=== PATIENT | male | born 1950 | race Caucasian/White ===

== ENCOUNTER 2023-02-11 12:33 | Emergency (ER) | payer MEDICARE, OTHER, SELFPAY ==
[2023-02-11 12:59] VITALS: BP 151/70; PULSE 72; RESP 18; TEMP 36.7; O2SAT 99; BMI 22.9
--- NOTE | 2023-02-11 13:05 | DI.US.S_ITS ---
PROCEDURE: US PERIPH VENOUS LOW EXTREM LT INDICATIONS: PAIN AND SWELLING TECHNIQUE: Real-time imaging, as well as color and pulse Doppler interrogation, were performed of the lower extremity deep veins from the inguinal ligament to the popliteal fossa. COMPARISON: None. FINDINGS: The common femoral, femoral and popliteal veins are normally compressible, and free of intraluminal thrombus. Color and pulse Doppler demonstrate normal phasic intraluminal flow. There is normal augmentation response to distal compression maneuver. 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 IMPRESSION: No DVT found. 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 Dictated by: Anam Christine M.D. on 02/11/2023 at 14:13 Approved by: Anam Christine M.D. on 02/11/2023 at 14:14
--- NOTE | 2023-02-11 14:45 | DI.RAD.S_ITS ---
PROCEDURE: XR KNEE LT 3V INDICATIONS: Effusion, meniscal injury or DJD? TECHNIQUE: 3 views of the knee were acquired. COMPARISON: None. FINDINGS: Bones: No fractures or dislocations. No suspicious bony lesions. Tricompartmental joint space narrowing with associated osteophytosis. Chondrocalcinosis. Soft tissues: Moderate joint effusion. No suspicious soft tissue calcifications. IMPRESSION: Moderate knee joint effusion, without displaced fracture. [id number] tricompartmental osteoarthritis. Kellgren-Ole Grade 2. Chondrocalcinosis, which can be seen in the setting of CPPD, aging, and parathyroid disorders. Dictated by: Rush Walker M.D. on 02/11/2023 at 15:17 Approved by: Rush Walker M.D. on 02/11/2023 at 15:18
--- NOTE | 2023-02-11 14:47 | ED_ITS ---
HPI - Extremity Problem <SHINE Angel - Last Filed: 02/11/23 15:51> General Chief complaint: Extremity Problem,Nontraumatic Stated complaint: Redness/swelling/flakey skin/pain L leg (Clot?) Time Seen by Provider: 02/11/23 14:45 Source: patient Mode of arrival: Ambulatory History of Present Illness HPI Narrative: This is a 72-year-old gentleman who is active, reports he is hike several 100 miles a year, presents to the emergency department complaining of left knee swelling which has gotten extremely swollen and now he has instability and difficulty walking on it. He states that he started having left knee pain in November, it has progressed so much she is unable to hike now. He denies any trauma, states that he took some Aleve last night and it was helpful. Denies numbness or tingling, reports that he was sent here for evaluation by his primary care provider to rule out DVT. He states that he feels it up to his medial thigh. But states that his lower leg was what was swollen yesterday. He denies history of blood clots, is not anticoagulated Related Data Previous Rx's Medication Instructions Recorded diclofenac sodium 1 % topical gel 4 g topical QID #100 grams 02/11/23 hydrocodone 5 mg-acetaminophen 325 1 tab PO Q6H PRN pain #10 tabs 02/11/23 mg tablet prednisone 20 mg tablet 40 mg PO DAILY 5 days #10 tabs 02/11/23 Allergies Allergy/AdvReac Type Severity Reaction Status Date / Time No Known Drug Allergies Allergy Verified 02/11/23 12:59 Review of Systems <SHINE Angel - Last Filed: 02/11/23 15:51> Review of Systems ROS Unobtainable: All systems reviewed & are unremarkable except as noted in HPI and below Patient History <SHINE Angel - Last Filed: 02/11/23 15:51> Social History Smoking Status: Former smoker Smoking Status: Former smoker alcohol intake frequency: 0-2 drinks per day Alcohol type: beer Substance Use Type: marijuana Exam <SHINE Angel - Last Filed: 02/11/23 15:51> Narrative Exam Narrative: Reviewed vitals signs and nursing notes. General: Pleasant, sitting upright, in no acute distress, well groomed, afebrile MSK: Left knee is grossly edematous, palpable suprapatellar fusion with fluid wave, nontender over LCL, MCL, patellar tendon, small palpable Castro cyst to posterior knee, nontender, no discoloration, warmth or rash. Skin: brisk capillary refill, without rash or wound Neuro: clear speech and normal cognition, A&O x3, GCS 15, no focal motor or sensation deficits Initial Vital Signs Initial Vital Signs: Vital Signs Temperature 98.0 F 02/11/23 12:59 Pulse Rate 72 02/11/23 12:59 Respiratory Rate 18 02/11/23 12:59 Blood Pressure 151/70 H 02/11/23 12:59 Pulse Oximetry 99 02/11/23 12:59 Oxygen Delivery Method Room Air 02/11/23 12:59 <Alix Howard DO - Last Filed: 02/11/23 19:48> Initial Vital Signs Initial Vital Signs: Vital Signs Temperature 98.0 F 02/11/23 12:59 Pulse Rate 72 02/11/23 12:59 Respiratory Rate 18 02/11/23 12:59 Blood Pressure 151/70 H 02/11/23 12:59 Pulse Oximetry 99 02/11/23 12:59 Oxygen Delivery Method Room Air 02/11/23 12:59 Procedures <SHINE Angel - Last Filed: 02/11/23 15:51> Orthopedic Splinting/Casting Injury #1: Side: left Lower Extremity Injury Location: knee Lower Extremity Immobilizer: knee immobilizer Post splinting neuro exam: intact Post splinting vascular exam: intact Placed by: Provider Course <SHINE Angel - Last Filed: 02/11/23 15:51> Orders Ordered: ED Orders 02/11/23 13:05 US periph venous low extrem lt Stat 02/11/23 14:45 XR knee LT 3V Stat Discontinued Medications Naproxen (Naproxen 250 Mg Tablet) 250 mg PO NOW ONE Stop: 02/11/23 15:32 Last Admin: 02/11/23 15:37 Dose: 250 mg Documented By: LATESHA Prednisone (Prednisone 20 Mg Tablet) 40 mg PO NOW ONE Stop: 02/11/23 15:32 Last Admin: 02/11/23 15:37 Dose: 40 mg Documented By: RLS Vital Signs Vital signs: Vital Signs - 8 hr 02/11/23 12:59 02/11/23 15:57 Temperature 98.0 F Pulse Rate 72 68 Respiratory Rate 18 17 Blood Pressure 151/70 H 148/62 H Pulse Oximetry 99 98 Oxygen Delivery Method Room Air Room Air <Alix Howard DO - Last Filed: 02/11/23 19:48> Orders Ordered: ED Orders 02/11/23 13:05 US periph venous low extrem lt Stat 02/11/23 14:45 XR knee LT 3V Stat Discontinued Medications Naproxen (Naproxen 250 Mg Tablet) 250 mg PO NOW ONE Stop: 02/11/23 15:32 Last Admin: 02/11/23 15:37 Dose: 250 mg Documented By: LATESHA Prednisone (Prednisone 20 Mg Tablet) 40 mg PO NOW ONE Stop: 02/11/23 15:32 Last Admin: 02/11/23 15:37 Dose: 40 mg Documented By: RLS Vital Signs Vital signs: Vital Signs - 8 hr 02/11/23 12:59 02/11/23 15:57 Temperature 98.0 F Pulse Rate 72 68 Respiratory Rate 18 17 Blood Pressure 151/70 H 148/62 H Pulse Oximetry 99 98 Oxygen Delivery Method Room Air Room Air MDM - Extremity (Nontraumatic) <SHINE Angel - Last Filed: 02/11/23 15:51> Imaging Data US - DVT: Radiologist's Impression: [place] [address] Ultrasound Report Signed Patient: Reece Cardona MR#: [id number] : 1950 Acct:[id number] Age/Sex: 72 / M Date of Service: 02/11/23 Loc: ED Accession Number: [id number] ?? Procedure: US periph venous low extrem lt Ordering Provider: Alix Howard D.O. PROCEDURE:? US PERIPH VENOUS LOW EXTREM LT ? INDICATIONS:? PAIN AND SWELLING ? TECHNIQUE:? Real-time imaging, as well as color and pulse Doppler interrogation, were performed of the lower extremity deep veins from the inguinal ligament to the popliteal fossa.? ? COMPARISON:? None. ? FINDINGS:? The common femoral, femoral and popliteal veins are normally compressible, and free of intraluminal thrombus.? Color and pulse Doppler demonstrate normal phasic intraluminal flow.? There is normal augmentation response to distal compression maneuver. ?Note is made of a Castro cyst at the posterior left knee measuring 1.5 x 4.6 x 4.8 cm.? ? IMPRESSION:? No DVT found.? 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 ? ? Dictated by: Anam Christine M.D. on 02/11/2023 at 14:13 ? ? Approved by: Anam Christine M.D. on 02/11/2023 at 14:14 ? Extremity x-ray #2: Radiologist's Impression: [address] [address] XRay Report Signed Patient: Reece Cardona MR#: [id number] : 1950 Acct:[id number] Age/Sex: 72 / M Date of Service: 02/11/23 Loc: ED Accession Number: [id number] ?? Procedure: XR knee LT 3V Ordering Provider: Taina Roldan PROCEDURE:? XR KNEE LT 3V ? INDICATIONS:? Effusion, meniscal injury or DJD? ? TECHNIQUE:? 3 views of the knee were acquired.? ? COMPARISON:? None. ? FINDINGS:? ? Bones:? No fractures or dislocations.? No suspicious bony lesions.? Tricompartmental joint space narrowing with associated osteophytosis.? Chondrocalcinosis. ? ? Soft tissues:? Moderate joint effusion.? No suspicious soft tissue calcifications.? ? ? IMPRESSION:? Moderate knee joint effusion, without displaced fracture. ? Gopi-ig-qhboodua tricompartmental osteoarthritis. Kellgren-Ole Grade 2. ? Chondrocalcinosis, which can be seen in the setting of CPPD, aging, and parathyroid disorders. ? ? Dictated by: Rush Walker M.D. on 02/11/2023 at 15:17 ? ? Approved by: Rush Walker M.D. on 02/11/2023 at 15:18 ? MDM Narrative Medical decision making narrative: Chief Complaint: Worsening left knee pain over the last few months Multiple etiologies for patient's complaint considered including, but not limited to: Degenerative joint disease, meniscal injury, effusion, DVT, Castro cyst, osteoarthritis flare, osteochondral injury, ligamental injury I have independently reviewed the patient's vital signs and nursing notes as w ell as prior records if available. Plan: Patient had an ultrasound DVT of his left lower extremity which was negative for DVT. When he came back to room, after assessment of appears that he has a left knee effusion and concern for bony abnormality of the left knee. He does not have a history of gout. Denies history of this in the past but states that he is had worsening his left knee without improvement over the last few months. Course of Care: Left knee x-ray is positive for moderate effusion, moderate tricompartmental osteoarthritis without fracture. I wrapped his knee and 4 in Laith bandage, patient reports improved stability sensation afterwards. He is ambulatory however limping on his left leg due to pain in his knee. Patient states that the naproxen was helpful last night. I encouraged him to continue using naproxen, gave him prednisone 40 mg daily for the next 5 days, hydrocodone to use as needed for pain, topical diclofenac gel, he understands that you with his medications prevent stomach ulcer. He will follow-up with orthopedics Social considerations that may affect disposition: none Questions are addressed and there is agreement with the plan and for follow-up. I consulted with the ED attending physician Dr. Howard as needed for higher level of care considerations and they were available for discussion and recommendations regarding plan of care and diagnostic testing. Patient is appropriate for outpatient management. Discharge Plan Departure Patient Disposition: Home Clinical Impression: Effusion of knee joint, left, Chondrocalcinosis Castro cyst Qualifiers: Laterality: left Qualified Code(s): M71.22 - Synovial cyst of popliteal space [Castro], left knee Instructions: Osteoarthritis, DI for Knee Effusion Activity Restrictions/Additional Instructions: *You have been diagnosed with left knee tricompartmental osteoarthritis. Chondrocalcinosis, and a moderate knee effusion without fracture. Please schedule follow-up at [facility] for evaluation your left knee. The ultrasound is negative for DVT, there is a small Castro cyst to the back of the knee which is benign. The steroids should help with the swelling, please use an Laith bandage to help with stability of your left knee, ice it frequently for 20 minutes on an at least 20 minutes off 3 to 4 times a day. Please eat food with your medications to prevent stomach ulcer. Thank you for your patients today, it was a pleasure to meet you, I hope this heals well. I have given you some Vicodin for pain keeping you up at night or severe pain as needed. *What to do: *Please continue to take your regular medications as directed. [ x] New medication prescriptions sent to your pharmacy: [[facility] ] [ ] New medication written as a paper prescription [ ] No new medications given *Please call and schedule follow up with your primary care provider in 2-3 days, at least for an update. Let them know you were seen in the Emergency Department for the above problem. We will electronically transmit a record of today's note if your PCP or specialist is in our system. *If you do not have a primary care provider please contact [phone] to establish care with one of the [facility] primary care providers. *Return to the Emergency Department for worsening symptoms, inability to keep liquids down, fever greater than 101F, chills, or other concerning symptom. Prescriptions: New prednisone 20 mg tablet 40 mg PO DAILY 5 Days Qty: 10 0RF diclofenac sodium 1 % gel 4 g topical QID Qty: 100 2RF Rx Instructions: Apply to knee up to 4 times a day as needed hydrocodone-acetaminophen 5-325 mg tablet 1 tab PO Q6H PRN (Reason: pain) Qty: 10 0RF Referrals: [facility] [Provider Group] Nisa Cobb PA-C [Primary Care Provider] - Stand Alone Forms: Patient Portal/API <Alix Howard DO - Last Filed: 02/11/23 19:48> Cosign ED Attending Yumiko Attestation: I was immediately available in the department for consultation. Documentation has been reviewed. Case was not discussed.
[2023-02-11] MEDS: NAPROXEN 250 MG TABLET PO (15:37)
[2023-02-11] MEDS: predniSONE 20 MG TABLET 40 MG PO (15:37)
[2023-02-11 15:57] VITALS: BP 148/62; PULSE 68; RESP 17; O2SAT 98
== END 2023-02-11 15:58 | disposition home or self-care (01) ==
PROVIDERS: Emergency Provider Nurse Practitioner Critical Care Medicine; Family Provider Student in an Organized Health Care Education/Training Program; PCP Student in an Organized Health Care Education/Training Program
DX: M71.22 Synovial cyst of popliteal space [Baker], left knee (principal); M11.20 Other chondrocalcinosis, unspecified site; M25.462 Effusion, left knee
CPT/HCPCS: 73562; 93971; 99283

== ENCOUNTER 2023-04-27 10:15 | Outpatient (RCR) | payer MEDICARE, OTHER, SELFPAY ==
--- NOTE | 2023-02-07 17:55 | PT.OIE ---
Current Diagnoses Other bursitis of hip, left hip (02/07/23) Pain in left leg (02/07/23) Weakness (02/07/23) Visit Care Team Role Provider Type Nisa Cobb PA-C Family Provider Physician Household Appliance Repairer Primary Care Provider Specialty: Medical Address: [address] [place] [address], [id number] Email: [email or web address] SHINE Brian Attending Provider Advanced Insulation Estimator Referring Provider Specialty: Family Practice Address: [facility] [facility], [address], [place], [address] Phone: Fax: Email: [email or web address] Physical Therapy Initial Evaluation PT-OP-A Visit Information Start: 02/07/23 17:28 Freq: Status: Active Protocol: Document 02/07/23 14:45 DCW (Rec: 02/07/23 17:40 DCW [id number]) Out-Patient Physical Therapy Visit Information Visit Information Visit Type Initial Evaluation Visit Start Time 14:45 Visit Stop Time 15:30 Total Visit Minutes 45 Visit Number 1 Number of TOY PACKER Visits 0 Evaluation Information Evaluation Date 02/07/23 PT-OP-B Current Condition Start: 02/07/23 17:28 Freq: Status: Active Protocol: Document 02/07/23 14:45 DCW (Rec: 02/07/23 17:40 DCW [id number]) Current Condition History of Current Condition Onset Date ~9 month history Current Complaints left hip pain limiting usual outdoor activities History of Current Condition Pt is a very active 72 year old male presenting with a nine month history of left hip pain. Pt reports he typically hikes [place] 3-4 times a week, but since last May, has been experiencing left lateral hip pain that worses when he hikes. Finally got so bad in November that he stopped hiking, feels like it has improved some since then, but still bothers him intermittently, resulting in frequent limping. Reports he established care with a new PCP last week, and she thinks it is bursitis. Pt notes that when she was poking around on his lateral hip, he remembered that he slipped on ice and fell directly on his lateral hip last July, right where he is having his pain, but does admit that the pain had been bothering him prior to the fall. Increased stiffness and difficulty moving his leg in the morning, has tried icing it but afterward could hardly walk. Treatment Goals Patient/Caregiver Goals Return to hiking 3-4x/week PT-OP-C Subjective Start: 02/07/23 17:28 Freq: Status: Active Protocol: Document 02/07/23 14:45 DCW (Rec: 02/07/23 17:40 DCW [id number]) OP-PT Subjective Patient Comments Patient Comments I'd be really thankful if I could get back to hiking. Patient Reported Progress Same Patient Questionnaires Lower Extremity Functional Scale LEFS Score 51.25 LEFS Impairment 40 to 59% Impaired (Score 32- 47) OP-PT Pain Assessment Location Left Lateral Hip Intensity 8 Scale Used Numeric (0 - 10) Frequency Intermittent Variations/Patterns Pain ranges from 4/10-8/10 PT-OP-F Manual Assessment Start: 02/07/23 17:28 Freq: Status: Active Protocol: Document 02/07/23 14:45 DCW (Rec: 02/07/23 17:45 DCW [id number]) Manual Assessments Soft Tissue Assessment Soft Tissue Mobility Assessment Point-specific pain inferior to greater trochanter, mild tightness along left ITB. Otherwise pt soft tissue very flexible PT-OP-G Mobility & Gait Start: 02/07/23 17:28 Freq: Status: Active Protocol: Document 02/07/23 14:45 DCW (Rec: 02/07/23 17:45 DCW [id number]) OP Gait Assessment Gait Gait Assistance Required: Independent Assistive Devices Assistive Device None Gait Deviations General Gait Pattern Antalgic,Decreased Stride Length,Lateral Trunk Lean Comments Gait Comments Pt ambulates with moderate left antalgic gait pattern and decreased right step length in effort to unweight left foot more quickly. PT-OP-L Special Tests Start: 02/07/23 17:28 Freq: Status: Active Protocol: Document 02/07/23 14:45 DCW (Rec: 02/07/23 17:45 DCW [id number]) Special Tests Hip Special Tests Hip Distraction Test Results Vague feeling of improved pain Samantha's Test Test Results Negative Reece Test Results Negative Straight Leg Raise Test Results Negative Scour Test Test Results Negative Piriformis Test Results Negative YANELIS Test Results Negative PT-OP-M Strength Start: 02/07/23 17:28 Freq: Status: Active Protocol: Document 02/07/23 14:45 DCW (Rec: 02/07/23 17:45 DCW [id number]) Hip Strength Hip Manual Muscle Testing Right Flexion (L2) 4+ Good+ Abduction 4+ Good+ Adduction 4+ Good+ External Rotation 4+ Good+ Internal Rotation 4+ Good+ Left Flexion (L2) 4- Good- Abduction 4- Good- Adduction 4+ Good+ External Rotation 4+ Good+ Internal Rotation 4+ Good+ Knee Strength Knee Manual Muscle Testing Right Flexion (S2) 4+ Good+ Extension (L3) 4+ Good+ Left Flexion (S2) 4+ Good+ Extension (L3) 4+ Good+ PT-OP-Q Treatments Start: 02/07/23 17:40 Freq: Status: Active Protocol: Document 02/07/23 14:45 DCW (Rec: 02/07/23 17:45 DCW [id number]) Therapeutic Exercises Standing Exercises Hip Extension Standing Exercise Name Hip Extension Side bilateral Resistance Lv 3 T-band Hip Abduction Standing Exercise Name Hip Abduction Side bilateral Resistance Lv 3 T-band PT-OP-T Assessment and Plan Start: 02/07/23 17:28 Freq: Status: Active Protocol: Document 02/07/23 14:45 DCW (Rec: 02/07/23 17:54 DCW [id number]) Physical Therapy Assessment Rehab Potential Rehabilitation Potential Excellent Evaluation Complexity Number of Personal Factors/Comorbidities 1-2 Number of Body Systems Impaired 1-2 Clinical Presentation at Evaluation Stable Impairments Impairments Activity Tolerance,Functional Activities,Functional Mobility ,Gait,Pain,ROM,Soft Tissue Mobility,Strength Goals Three Impairment Left hip weakness Skilled Nursing Goal (LTG) Pt to demonstrate MMT testing of left hip flexion and abduction to improve to at least 4+/5 in order to improve pt ability to ambulate without an antalgic gait pattern. LTG Duration 04/10/23 Two Impairment Pt unable to participate in his hobby of hiking due to hip pain Skilled Nursing Goal (LTG) Pt to demonstrate ability to hike [place] at least 1x/ week without increased hip pain in order to return to preferred outdoor exercise activities. LTG Duration 04/10/23 One Impairment Pt does not have an appropriate home exercise program Short Term Goal (STG) Pt to be independent and compliant with an appropriate HEP STG Duration 8/10/23 Assessment Summary Assessment Pt presents with signs and symptoms consistent with likely left GT bursitis. Pt experiences very point specific pain, and no other testing today able to replicate any positive symptoms. Pt does show some left hip weakness, especially hip flexion and abduction. Pt ambulates with moderate antalgia, and is limited in his participation in his usual outdoor activities, including regular hiking of [place]. Pt should benefit from skilled therapy focusing on STM, strengthening, as well as potential use of Iontophoresis to assist with anti-inflammatory process. Physical Therapy Plan Frequency and Duration Frequency of Treatment 2x/Week Plan of Care Start Date 02/07/23 Plan of Care End Date 04/10/23 Therapeutic Interventions Therapeutic Interventions Gait Training,Home Exercise Program,Joint Mobilizations, Manual Therapy,Neuromuscular Re-education,Patient/Caregiver Education,Self-Care/Home Management,Soft Tissue Mobilization,Therapeutic Activities,Therapeutic Exercises Modalities Cold Pack/Ice Massage,Electric Stimulation,Hot Packs, Iontophoresis,Ultrasound Other Therapeutic Interventions Iontophoresis /c Dexamethasone , 10 mg/mL Next Visit Focus/Plan Next Note Type Treatment Note Next Visit Plan STM, hip strengthening, Ionto
--- NOTE | 2023-02-07 17:55 | PT.OPPOC ---
Physical, Occupational & Speech Therapy At [facility] Current Diagnoses Other bursitis of hip, left hip (02/07/23) Pain in left leg (02/07/23) Weakness (02/07/23) Visit Care Team Role Provider Type Nisa Cobb PA-C Family Provider Physician Rn Staff Primary Care Provider Specialty: Medical Address: [address] [place] [address], [id number] Email: [email or web address] SHINE Brian Attending Provider Advanced Chair Mechanic Referring Provider Specialty: Family Practice Address: [facility] [facility], [facility] [address], [place], [address] Phone: Fax: Email: [email or web address] Plan Of Care PT-OP-T Assessment and Plan Start: 02/07/23 17:28 Freq: Status: Active Protocol: Document 02/07/23 14:45 DCW (Rec: 02/07/23 17:54 DCW [id number]) Physical Therapy Assessment Rehab Potential Rehabilitation Potential Excellent Evaluation Complexity Number of Personal Factors/Comorbidities 1-2 Number of Body Systems Impaired 1-2 Clinical Presentation at Evaluation Stable Impairments Impairments Activity Tolerance,Functional Activities,Functional Mobility ,Gait,Pain,ROM,Soft Tissue Mobility,Strength Goals Three Impairment Left hip weakness Long-Term Goal (LTG) Pt to demonstrate MMT testing of left hip flexion and abduction to improve to at least 4+/5 in order to improve pt ability to ambulate without an antalgic gait pattern. LTG Duration 04/10/23 Two Impairment Pt unable to participate in his hobby of hiking due to hip pain Airborne And Air Delivery Specialist Goal (LTG) Pt to demonstrate ability to hike [place] at least 1x/ week without increased hip pain in order to return to preferred outdoor exercise activities. LTG Duration 04/10/23 One Impairment Pt does not have an appropriate home exercise program Short Term Goal (STG) Pt to be independent and compliant with an appropriate HEP STG Duration 03/10/23 Assessment Summary Assessment Pt presents with signs and symptoms consistent with likely left GT bursitis. Pt experiences very point specific pain, and no other testing today able to replicate any positive symptoms. Pt does show some left hip weakness, especially hip flexion and abduction. Pt ambulates with moderate antalgia, and is limited in his participation in his usual outdoor activities, including regular hiking of [place]. Pt should benefit from skilled therapy focusing on STM, strengthening, as well as potential use of Iontophoresis to assist with anti-inflammatory process. Physical Therapy Plan Frequency and Duration Frequency of Treatment 2x/Week Plan of Care Start Date 02/07/23 Plan of Care End Date 04/10/23 Therapeutic Interventions Therapeutic Interventions Gait Training,Home Exercise Program,Joint Mobilizations, Manual Therapy,Neuromuscular Re-education,Patient/Caregiver Education,Self-Care/Home Management,Soft Tissue Mobilization,Therapeutic Activities,Therapeutic Exercises Modalities Cold Pack/Ice Massage,Electric Stimulation,Hot Packs, Iontophoresis,Ultrasound Other Therapeutic Interventions Iontophoresis /c Dexamethasone , 10 mg/mL Next Visit Focus/Plan Next Note Type Treatment Note Next Visit Plan STM, hip strengthening, Ionto Plan of Care Dates Plan of Care Start Date 02/07/23 Plan of Care End Date 04/10/23 Electronically Signed by: Carlos Grant, PT 02/07/23 [id number] If you are in agreement with this Plan of Care, please return a signed and dated copy. I have reviewed this Plan of Care and certify that the skilled therapy services above are required to meet the patient?s needs. Physician Signature Date Printed Name and Credentials Clinical Instructor Signature Printed Name and Credentials
--- NOTE | 2023-02-11 12:44 | PT-OP ANOTE ---
Pt arrived for his 02/11/23 with severe antalgia, reports his left leg pain started increasing on Tuesday, and has been worsening ever since. L LE was noted to be swollen and tender with red, flaky skin. Therapist decided to cancel appointment and escorted patient to the ED for assessment of potential DVT.
--- NOTE | 2023-02-14 13:22 | PT-OP ANOTE ---
Spoke with pt by phone regarding ongoing PT following trip to ED last week. Therapist and patient agreeable to wait and see what Ortho has to say following appointment on 02/18/23, will plan to continue PT after this appointment if cleared by Ortho.
--- NOTE | 2023-03-01 15:40 | PT.OTN ---
Current Diagnoses Other bursitis of hip, left hip (03/01/23) Pain in left leg (03/01/23) Weakness (03/01/23) Physical Therapy Treatment Note PT-OP-A Visit Information Start: 02/07/23 17:28 Freq: Status: Active Protocol: Document 03/01/23 14:17 NBM (Rec: 03/01/23 15:39 NBM [id number]) Out-Patient Physical Therapy Visit Information Visit Information Visit Type Treatment Note Visit Start Time 14:16 Visit Stop Time 15:00 Total Visit Minutes 45 Visit Number 2 Number of [facility] Visits 1 PT-OP-B Current Condition Start: 02/07/23 17:28 Freq: Status: Active Protocol: Document 02/07/23 14:45 DCW (Rec: 02/07/23 17:40 DCW [id number]) Current Condition History of Current Condition Onset Date ~9 month history Current Complaints left hip pain limiting usual outdoor activities History of Current Condition Pt is a very active 72 year old male presenting with a nine month history of left hip pain. Pt reports he typically hikes [place] 3-4 times a week, but since last May, has been experiencing left lateral hip pain that worses when he hikes. Finally got so bad in November that he stopped hiking, feels like it has improved some since then, but still bothers him intermittently, resulting in frequent limping. Reports he established care with a new PCP last week, and she thinks it is bursitis. Pt notes that when she was poking around on his lateral hip, he remembered that he slipped on ice and fell directly on his lateral hip last July, right where he is having his pain, but does admit that the pain had been bothering him prior to the fall. Increased stiffness and difficulty moving his leg in the morning, has tried icing it but afterward could hardly walk. Treatment Goals Patient/Caregiver Goals Return to hiking 3-4x/week PT-OP-C Subjective Start: 02/07/23 17:28 Freq: Status: Active Protocol: Document 03/01/23 14:17 NBM (Rec: 03/01/23 15:39 NBM [id number]) OP-PT Subjective Patient Comments Patient Comments Rich reports he saw ortho for his swollen L knee and was advised both knees have arthritis and he can proceed with PT for his hip. He hasn't been able to hike since November because he kept trying to hike through his L hip pain 8 months ago and it kept getting inflamed. He hasn't done any of his hip exercises and feels like we're starting over. It does seem to be better but I' ve had so many false starts where there seems to be an improvement and then it's back . He had L hip and leg pain for several days but none for the last 8 days, possibly because his knee forced him to rest more. He did yoga daily for 40 years but stopped because of the hip and leg pain. Pt sleeps on back or R hip. PT-OP-F Manual Assessment Start: 02/07/23 17:28 Freq: Status: Active Protocol: Document 02/07/23 14:45 DCW (Rec: 02/07/23 17:45 DCW [id number]) Manual Assessments Soft Tissue Assessment Soft Tissue Mobility Assessment Point-specific pain inferior to greater trochanter, mild tightness along left ITB. Otherwise pt soft tissue very flexible PT-OP-G Mobility & Gait Start: 02/07/23 17:28 Freq: Status: Active Protocol: Document 02/07/23 14:45 DCW (Rec: 02/07/23 17:45 DCW [id number]) OP Gait Assessment Gait Gait Assistance Required: Independent Assistive Devices Assistive Device None Gait Deviations General Gait Pattern Antalgic,Decreased Stride Length,Lateral Trunk Lean Comments Gait Comments Pt ambulates with moderate left antalgic gait pattern and decreased right step length in effort to unweight left foot more quickly. PT-OP-L Special Tests Start: 02/07/23 17:28 Freq: Status: Active Protocol: Document 02/07/23 14:45 DCW (Rec: 02/07/23 17:45 DCW [id number]) Special Tests Hip Special Tests Hip Distraction Test Results Vague feeling of improved pain Samantha's Test Test Results Negative Reece Test Results Negative Straight Leg Raise Test Results Negative Scour Test Test Results Negative Piriformis Test Results Negative YANELIS Test Results Negative PT-OP-M Strength Start: 02/07/23 17:28 Freq: Status: Active Protocol: Document 02/07/23 14:45 DCW (Rec: 02/07/23 17:45 DCW [id number]) Hip Strength Hip Manual Muscle Testing Right Flexion (L2) 4+ Good+ Abduction 4+ Good+ Adduction 4+ Good+ External Rotation 4+ Good+ Internal Rotation 4+ Good+ Left Flexion (L2) 4- Good- Abduction 4- Good- Adduction 4+ Good+ External Rotation 4+ Good+ Internal Rotation 4+ Good+ Knee Strength Knee Manual Muscle Testing Right Flexion (S2) 4+ Good+ Extension (L3) 4+ Good+ Left Flexion (S2) 4+ Good+ Extension (L3) 4+ Good+ PT-OP-Q Treatments Start: 02/07/23 17:40 Freq: Status: Active Protocol: Document 03/01/23 14:17 NB (Rec: 03/01/23 15:39 [facility] [id number]) Cardio Equipment Recumbent Elliptical ([employer]) Duration (Minutes) 7 Resistance 3>4 Seat Position 10 seen Therapeutic Exercises Standing Exercises Kitchen sink stretch Reps/Minutes 30s Comments cueing for initial form; good feedback response calf stretch Side bilateral Equipment Used AILEEN Reps/Minutes 1' Comments cues for foot positioning. Hip Extension Standing Exercise Name Hip Extension Side bilateral Resistance Lv 3 T-band Equipment Used mirror Reps/Minutes x10, x5 w/ mirror, x5 w/o Hip Abduction Standing Exercise Name Hip Abduction Side bilateral Resistance Lv 3 T-band Reps/Minutes x10 ea Comments cues for excessive hip ER, upright posture, eccentric control no discomfort Manual Therapy Treatment Soft Tissue Mobilization L hip Body Location piriformis, TFL, ITB Mobilization Type Cross-Friction,Rolling, Strumming,Sustained Pressure Intensity/Depth Moderate Body Position Sidelying Comments pillow supports between LEs - positive feedback response Self-Care/Home Management Treatment Education Patient Education Body Mechanics,Home Exercise Program Other Education Reviewed original HEP: Hip abd /ext - pt has HO and Lvl 3 green Tb. Educated pt on sleeping positions and use of pillow supports between LEs in sidelying - HO given. PT-OP-T Assessment and Plan Start: 02/07/23 17:28 Freq: Status: Active Protocol: Document 03/01/23 14:17 NBM (Rec: 03/01/23 15:39 [facility] [id number]) Physical Therapy Assessment Impairments Impairments Activity Tolerance,Functional Activities,Functional Mobility ,Gait,Pain,ROM,Soft Tissue Mobility,Strength Goals Three Impairment Left hip weakness [employer] Goal (LTG) Pt to demonstrate MMT testing of left hip flexion and abduction to improve to at least 4+/5 in order to improve pt ability to ambulate without an antalgic gait pattern. LTG Duration 04/10/23 Two Impairment Pt unable to participate in his hobby of hiking due to hip pain [employer] Goal (LTG) Pt to demonstrate ability to hike [place] at least 1x/ week without increased hip pain in order to return to preferred outdoor exercise activities. LTG Duration 04/10/23 One Impairment Pt does not have an appropriate home exercise program Short Term Goal (STG) Pt to be independent and compliant with an appropriate HEP 03/01/23: Hip abd/ext- pt has Lvl 3 Tb & HO. STG Duration 03/10/23 Assessment Summary Assessment Reece arrives w/ L knee visibly swollen and reports diagnosis of arthritis for both knees and clearance from orthopedist to proceed w/ PT for hip. Treatment focus on review of original LE strengthening HEP (Hip abd/ext ), education for sleeping positions, and STM to hip - pt has HO and Lvl 3 green Tb and is given HO given for sleeping mechanics. He tolerates treatment session without increase in baseline symptoms. He requires cues for upright posture and neutral foot positioning w/ hip ext/ abd due to excessive hip ER but demonstrates improved self -awareness w/ cueing and repetition. Palpable tightness to L IT band noted. Pt reports L knee and hip are looser end of treatment session. Physical Therapy Plan Frequency and Duration Frequency of Treatment 2x/Week Plan of Care Start Date 02/07/23 Plan of Care End Date 04/10/23 Therapeutic Interventions Therapeutic Interventions Gait Training,Home Exercise Program,Joint Mobilizations, Manual Therapy,Neuromuscular Re-education,Patient/Caregiver Education,Self-Care/Home Management,Soft Tissue Mobilization,Therapeutic Activities,Therapeutic Exercises Modalities Cold Pack/Ice Massage,Electric Stimulation,Hot Packs, Iontophoresis,Ultrasound Other Therapeutic Interventions Iontophoresis /c Dexamethasone , 10 mg/mL Next Visit Focus/Plan Next Note Type Treatment Note Next Visit Plan Assess response to last treatment. Consider STM/ stretching to ITB STM, hip strengthening, Ionto
--- NOTE | 2023-03-07 11:01 | PT.OTN ---
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 Pt reports he typically hikes [place] 3-4 times a week, but since last May, has been experiencing left lateral hip pain that worses when he hikes. Finally got so bad in November that he stopped hiking, feels like it has improved some since then, but still bothers him intermittently, resulting in frequent limping. Reports he established care with a new PCP last week, and she thinks it is bursitis. Pt notes that when she was poking around on his lateral hip, he remembered that he slipped on ice and fell directly on his lateral hip last July, right where he is having his pain, but does admit that the pain had been bothering him prior to the fall. Increased stiffness and difficulty moving his leg in the morning, has tried icing it but afterward could hardly walk. Treatment Goals Patient/Caregiver Goals Return to hiking 3-4x/week PT-OP-C Subjective Start: 02/07/23 17:28 Freq: Status: Active Protocol: Document 03/07/23 10:15 DCW (Rec: 03/07/23 11:01 DCW [id number]) OP-PT Subjective Patient Comments Patient Comments Now that my swelling has gone down, I was able to ice my hip, and it seemd to help quite a bit. PT-OP-F Manual Assessment Start: 02/07/23 17:28 Freq: Status: Active Protocol: Document 02/07/23 14:45 DCW (Rec: 02/07/23 17:45 DCW [id number]) Manual Assessments Soft Tissue Assessment Soft Tissue Mobility Assessment Point-specific pain inferior to greater trochanter, mild tightness along left ITB. Otherwise pt soft tissue very flexible PT-OP-G Mobility & Gait Start: 02/07/23 17:28 Freq: Status: Active Protocol: Document 02/07/23 14:45 DCW (Rec: 02/07/23 17:45 DCW [id number]) OP Gait Assessment Gait Gait Assistance Required: Independent Assistive Devices Assistive Device None Gait Deviations General Gait Pattern Antalgic,Decreased Stride Length,Lateral Trunk Lean Comments Gait Comments Pt ambulates with moderate left antalgic gait pattern and decreased right step length in effort to unweight left foot more quickly. PT-OP-L Special Tests Start: 02/07/23 17:28 Freq: Status: Active Protocol: Document 02/07/23 14:45 DCW (Rec: 02/07/23 17:45 DCW [id number]) Special Tests Hip Special Tests Hip Distraction Test Results Vague feeling of improved pain Samantha's Test Test Results Negative Reece Test Results Negative Straight Leg Raise Test Results Negative Scour Test Test Results Negative Piriformis Test Results Negative YANELIS Test Results Negative PT-OP-M Strength Start: 02/07/23 17:28 Freq: Status: Active Protocol: Document 02/07/23 14:45 DCW (Rec: 02/07/23 17:45 DCW [id number]) Hip Strength Hip Manual Muscle Testing Right Flexion (L2) 4+ Good+ Abduction 4+ Good+ Adduction 4+ Good+ External Rotation 4+ Good+ Internal Rotation 4+ Good+ Left Flexion (L2) 4- Good- Abduction 4- Good- Adduction 4+ Good+ External Rotation 4+ Good+ Internal Rotation 4+ Good+ Knee Strength Knee Manual Muscle Testing Right Flexion (S2) 4+ Good+ Extension (L3) 4+ Good+ Left Flexion (S2) 4+ Good+ Extension (L3) 4+ Good+ PT-OP-Q Treatments Start: 02/07/23 17:40 Freq: Status: Active Protocol: Document 03/07/23 10:15 DCW (Rec: 03/07/23 11:01 [facility] [id number]) Cardio Equipment Recumbent Elliptical ([employer]) Duration (Minutes) 6 Resistance 4 Seat Position 10 seen Gym Equipment Shuttle Recovery Unilateral Squats Resistance 62# (two new) Bilateral Squats Resistance 100# (three new) Therapeutic Exercises Supine Exercises Piriformis Stretch Supine Exercise Name Knee to opposite shoulder Side left Hamstring Stretch Supine Exercise Name HS stretch Side left Standing Exercises calf stretch Side bilateral Equipment Used AILEEN Reps/Minutes 30 hold x3 Comments cues for foot positioning. Other Exercises BOSU Lunge Other Exercise Name BOSU Lunge Side bilateral Equipment Used Blue BOSU Manual Therapy Treatment Soft Tissue Mobilization L hip Body Location piriformis, TFL, ITB Mobilization Type Cross-Friction,Rolling, Strumming,Sustained Pressure Intensity/Depth Moderate Body Position Sidelying Comments pillow supports between LEs - positive feedback response PT-OP-T Assessment and Plan Start: 02/07/23 17:28 Freq: Status: Active Protocol: Document 03/07/23 10:15 DCW (Rec: 03/07/23 11:01 [facility] [id number]) Physical Therapy Assessment Impairments Impairments Activity Tolerance,Functional Activities,Functional Mobility ,Gait,Pain,ROM,Soft Tissue Mobility,Strength Goals Three Impairment Left hip weakness Intermediate Goal (LTG) Pt to demonstrate MMT testing of left hip flexion and abduction to improve to at least 4+/5 in order to improve pt ability to ambulate without an antalgic gait pattern. LTG Duration 04/10/23 Two Impairment Pt unable to participate in his hobby of hiking due to hip pain Intermediate Goal (LTG) Pt to demonstrate ability to hike [place] at least 1x/ week without increased hip pain in order to return to preferred outdoor exercise activities. LTG Duration 04/10/23 One Impairment Pt does not have an appropriate home exercise program Short Term Goal (STG) Pt to be independent and compliant with an appropriate HEP 03/01/23: Hip abd/ext- pt has Lvl 3 Tb & HO. STG Duration 03/10/23 Assessment Summary Assessment Pt ambulation much better today, although he continues to have a moderate antalgic gait due to left LE weakness/ pain. Tolerated treatment very well,required some verbal cues for BOSU lunge performance, otherwise showing good ability to perform exercises independently. Physical Therapy Plan Frequency and Duration Frequency of Treatment 2x/Week Plan of Care Start Date 02/07/23 Plan of Care End Date 04/10/23 Therapeutic Interventions Therapeutic Interventions Gait Training,Home Exercise Program,Joint Mobilizations, Manual Therapy,Neuromuscular Re-education,Patient/Caregiver Education,Self-Care/Home Management,Soft Tissue Mobilization,Therapeutic Activities,Therapeutic Exercises Modalities Cold Pack/Ice Massage,Electric Stimulation,Hot Packs, Iontophoresis,Ultrasound Other Therapeutic Interventions Iontophoresis /c Dexamethasone , 10 mg/mL Next Visit Focus/Plan Next Note Type Treatment Note Next Visit Plan Assess response to last treatment. Consider STM/ stretching to ITB STM, hip strengthening, Ionto
--- NOTE | 2023-03-11 16:41 | PT.OTN ---
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 Pt reports he typically hikes [place] 3-4 times a week, but since last May, has been experiencing left lateral hip pain that worses when he hikes. Finally got so bad in November that he stopped hiking, feels like it has improved some since then, but still bothers him intermittently, resulting in frequent limping. Reports he established care with a new PCP last week, and she thinks it is bursitis. Pt notes that when she was poking around on his lateral hip, he remembered that he slipped on ice and fell directly on his lateral hip last July, right where he is having his pain, but does admit that the pain had been bothering him prior to the fall. Increased stiffness and difficulty moving his leg in the morning, has tried icing it but afterward could hardly walk. Treatment Goals Patient/Caregiver Goals Return to hiking 3-4x/week PT-OP-C Subjective Start: 02/07/23 17:28 Freq: Status: Active Protocol: Document 03/11/23 15:01 NBM (Rec: 03/11/23 16:38 NBM [id number]) OP-PT Subjective Patient Comments Patient Comments Pt states he was walking the last two days including hills and L knee feels much better. He used a walking pole in R hand a little bit. His driveway has a 75 ft elevation and he practices on that 3 times a day. Swelling has improved and he iced today before coming to PT. He uses ice to prevent swelling and manage pain. L hip pain has kind of gone away too. Home ex's are going well and have gotten kind of easy. I don't always do it twice a day but I always do it in the morning. PT-OP-F Manual Assessment Start: 02/07/23 17:28 Freq: Status: Active Protocol: Document 02/07/23 14:45 DCW (Rec: 02/07/23 17:45 DCW [id number]) Manual Assessments Soft Tissue Assessment Soft Tissue Mobility Assessment Point-specific pain inferior to greater trochanter, mild tightness along left ITB. Otherwise pt soft tissue very flexible PT-OP-G Mobility & Gait Start: 02/07/23 17:28 Freq: Status: Active Protocol: Document 02/07/23 14:45 DCW (Rec: 02/07/23 17:45 DCW [id number]) OP Gait Assessment Gait Gait Assistance Required: Independent Assistive Devices Assistive Device None Gait Deviations General Gait Pattern Antalgic,Decreased Stride Length,Lateral Trunk Lean Comments Gait Comments Pt ambulates with moderate left antalgic gait pattern and decreased right step length in effort to unweight left foot more quickly. PT-OP-L Special Tests Start: 02/07/23 17:28 Freq: Status: Active Protocol: Document 02/07/23 14:45 DCW (Rec: 02/07/23 17:45 DCW [id number]) Special Tests Hip Special Tests Hip Distraction Test Results Vague feeling of improved pain Samantha's Test Test Results Negative Reece Test Results Negative Straight Leg Raise Test Results Negative Scour Test Test Results Negative Piriformis Test Results Negative YANELIS Test Results Negative PT-OP-M Strength Start: 02/07/23 17:28 Freq: Status: Active Protocol: Document 02/07/23 14:45 DCW (Rec: 02/07/23 17:45 DCW [id number]) Hip Strength Hip Manual Muscle Testing Right Flexion (L2) 4+ Good+ Abduction 4+ Good+ Adduction 4+ Good+ External Rotation 4+ Good+ Internal Rotation 4+ Good+ Left Flexion (L2) 4- Good- Abduction 4- Good- Adduction 4+ Good+ External Rotation 4+ Good+ Internal Rotation 4+ Good+ Knee Strength Knee Manual Muscle Testing Right Flexion (S2) 4+ Good+ Extension (L3) 4+ Good+ Left Flexion (S2) 4+ Good+ Extension (L3) 4+ Good+ PT-OP-Q Treatments Start: 02/07/23 17:40 Freq: Status: Active Protocol: Document 03/11/23 15:01 [facility] (Rec: 03/11/23 16:38 [facility] [id number]) Cardio Equipment Recumbent Elliptical ([employer]) Duration (Minutes) 8 Resistance 5 Seat Position 10 seen Gym Equipment Shuttle Recovery Unilateral Squats Resistance R 75# (two new), L 75>50 dc'd d/t pt fatigue Bilateral Squats Resistance 100# (three new) Shuttle Recovery Platform Stable,Unstable Reps/Time 2x10, x10 Unstable Therapeutic Exercises Supine Exercises bridge Supine Exercise Name w/ ball squeeze Side bilateral Equipment Used blue/white ball Reps/Minutes x15 Comments ball squeeze improves excessive ER Piriformis Stretch Supine Exercise Name Knee to opposite shoulder Side bilateral Comments L>R tightness Hamstring Stretch Supine Exercise Name HS stretch Side bilateral Reps/Minutes 2 x 45s ea Sitting Exercises hip abduction Resistance Lvl 3 Tb hip adduction Sitting Exercise Name seated ball squeeze Equipment Used blue/white ball Reps/Minutes 5SH x10 Comments HEP Self-Care/Home Management Treatment Education Patient Education Body Mechanics,Home Exercise Program Other Education HEP verbal review. Added to HEP: Bridge w/ ball squeeze. PT-OP-T Assessment and Plan Start: 02/07/23 17:28 Freq: Status: Active Protocol: Document 03/11/23 15:01 [facility] (Rec: 03/11/23 16:38 [facility] [id number]) Physical Therapy Assessment Impairments Impairments Activity Tolerance,Functional Activities,Functional Mobility ,Gait,Pain,ROM,Soft Tissue Mobility,Strength Goals Three Impairment Left hip weakness Mcc Goal (LTG) Pt to demonstrate MMT testing of left hip flexion and abduction to improve to at least 4+/5 in order to improve pt ability to ambulate without an antalgic gait pattern. LTG Duration 04/10/23 Two Impairment Pt unable to participate in his hobby of hiking due to hip pain Mcc Goal (LTG) Pt to demonstrate ability to hike [place] at least 1x/ week without increased hip pain in order to return to preferred outdoor exercise activities. 03/11/23: Pt will try [place] this week and report back . LTG Duration 04/10/23 One Impairment Pt does not have an appropriate home exercise program Short Term Goal (STG) Pt to be independent and compliant with an appropriate HEP 03/01/23: Hip abd/ext- pt has Lvl 3 Tb & HO. 03/11/23: Seated hip add/abd w/ Lvl 3 TB and bridge w/ ball squeeze - HO given. STG Duration 03/10/23 Assessment Summary Assessment Reece continues to progress towards goal of hiking [place] w/o hip/knee pain as he walked inclines the last two days without pain. He requires consistent cues for LE alignment due to excessive hip ER L>R with DL closed-chain ex's and HS stretch today. Pt' s self-awareness improves w/ cueing and repetition, and with ball squeeze for bridging . He tolerates DL squats on Shuttle Recovery w/ unstable surface, but LLE unable to complete unilateral squats after due to reported fatigue even with weight modified to 50# and discontinued. Added to HEP: seated hip add/abd w/ Lvl 3 TB and bridge w/ ball squeeze - HO given. Physical Therapy Plan Frequency and Duration Frequency of Treatment 2x/Week Plan of Care Start Date 02/07/23 Plan of Care End Date 04/10/23 Therapeutic Interventions Therapeutic Interventions Gait Training,Home Exercise Program,Joint Mobilizations, Manual Therapy,Neuromuscular Re-education,Patient/Caregiver Education,Self-Care/Home Management,Soft Tissue Mobilization,Therapeutic Activities,Therapeutic Exercises Modalities Cold Pack/Ice Massage,Electric Stimulation,Hot Packs, Iontophoresis,Ultrasound Other Therapeutic Interventions Iontophoresis /c Dexamethasone , 10 mg/mL Next Visit Focus/Plan Next Note Type Treatment Note Next Visit Plan I/s in RICE. Review sleeping positions, HEP and standing ex for progression from lvl 3 Tb . Consider ITB stretch for HEP ; STM/stretching to ITB. POC: STM, hip strengthening, Ionto
--- NOTE | 2023-03-15 16:55 | PT.OTN ---
Current Diagnoses Other bursitis of hip, left hip (03/15/23) Pain in left leg (03/15/23) Weakness (03/15/23) Physical Therapy Treatment Note PT-OP-A Visit Information Start: 02/07/23 17:28 Freq: Status: Active Protocol: Document 03/15/23 14:18 NBM (Rec: 03/15/23 16:53 NBM [id number]) Out-Patient Physical Therapy Visit Information Visit Information Visit Type Treatment Note Visit Start Time 14:21 Visit Stop Time 15:12 Total Visit Minutes 51 Visit Number 5 Number of RIDDLER OPERATOR Visits 2 PT-OP-B Current Condition Start: 02/07/23 17:28 Freq: Status: Active Protocol: Document 02/07/23 14:45 DCW (Rec: 02/07/23 17:40 DCW [id number]) Current Condition History of Current Condition Onset Date ~9 month history Current Complaints left hip pain limiting usual outdoor activities History of Current Condition Pt is a very active 72 year old male presenting with a nine month history of left hip pain. Pt reports he typically hikes [place] 3-4 times a week, but since last May, has been experiencing left lateral hip pain that worses when he hikes. Finally got so bad in November that he stopped hiking, feels like it has improved some since then, but still bothers him intermittently, resulting in frequent limping. Reports he established care with a new PCP last week, and she thinks it is bursitis. Pt notes that when she was poking around on his lateral hip, he remembered that he slipped on ice and fell directly on his lateral hip last July, right where he is having his pain, but does admit that the pain had been bothering him prior to the fall. Increased stiffness and difficulty moving his leg in the morning, has tried icing it but afterward could hardly walk. Treatment Goals Patient/Caregiver Goals Return to hiking 3-4x/week PT-OP-C Subjective Start: 02/07/23 17:28 Freq: Status: Active Protocol: Document 03/15/23 14:18 NBM (Rec: 03/15/23 16:53 NBM [id number]) OP-PT Subjective Patient Comments Patient Comments Pt reports he walked 3.[address] a trail yesterday around the [place] [employer] after applying 1% diclofenac to L knee. He had a trekking pole but did not use it much. His L leg felt heavier and heavier by the end of the walk and he could feel a twinge in low part of knee, but it all felt better when he iced/elevated as soon as he got home. He awoke without discomfort this morning but is still hobbling a bit because of apprehension of pushing it too hard. He's noticed the ex's are getting easier, or at least there's less discomfort afterwards. His L hip is all better except for occasional discomfort in front of L hip which improves after resting a moment. Patient Reported Progress Improving PT-OP-F Manual Assessment Start: 02/07/23 17:28 Freq: Status: Active Protocol: Document 02/07/23 14:45 DCW (Rec: 02/07/23 17:45 DCW [id number]) Manual Assessments Soft Tissue Assessment Soft Tissue Mobility Assessment Point-specific pain inferior to greater trochanter, mild tightness along left ITB. Otherwise pt soft tissue very flexible PT-OP-G Mobility & Gait Start: 02/07/23 17:28 Freq: Status: Active Protocol: Document 02/07/23 14:45 DCW (Rec: 02/07/23 17:45 DCW [id number]) OP Gait Assessment Gait Gait Assistance Required: Independent Assistive Devices Assistive Device None Gait Deviations General Gait Pattern Antalgic,Decreased Stride Length,Lateral Trunk Lean Comments Gait Comments Pt ambulates with moderate left antalgic gait pattern and decreased right step length in effort to unweight left foot more quickly. PT-OP-L Special Tests Start: 02/07/23 17:28 Freq: Status: Active Protocol: Document 02/07/23 14:45 DCW (Rec: 02/07/23 17:45 DCW [id number]) Special Tests Hip Special Tests Hip Distraction Test Results Vague feeling of improved pain Samantha's Test Test Results Negative Reece Test Results Negative Straight Leg Raise Test Results Negative Scour Test Test Results Negative Piriformis Test Results Negative YANELIS Test Results Negative PT-OP-M Strength Start: 02/07/23 17:28 Freq: Status: Active Protocol: Document 02/07/23 14:45 DCW (Rec: 02/07/23 17:45 DCW [id number]) Hip Strength Hip Manual Muscle Testing Right Flexion (L2) 4+ Good+ Abduction 4+ Good+ Adduction 4+ Good+ External Rotation 4+ Good+ Internal Rotation 4+ Good+ Left Flexion (L2) 4- Good- Abduction 4- Good- Adduction 4+ Good+ External Rotation 4+ Good+ Internal Rotation 4+ Good+ Knee Strength Knee Manual Muscle Testing Right Flexion (S2) 4+ Good+ Extension (L3) 4+ Good+ Left Flexion (S2) 4+ Good+ Extension (L3) 4+ Good+ PT-OP-Q Treatments Start: 02/07/23 17:40 Freq: Status: Active Protocol: Document 03/15/23 14:18 NBM (Rec: 03/15/23 16:53 [facility] [id number]) Cardio Equipment Recumbent Elliptical ([employer]) Duration (Minutes) 7 Resistance 5 Seat Position 10 seen Gym Equipment Shuttle Recovery Unilateral Squats Details cues for breathwork, LE alignment improves Resistance L 75>50# w/brake at 90/90 Reps/Time x15 Bilateral Squats Details w/ ball squeeze (blue/white) Resistance 75# (three new) Shuttle Recovery Platform Stable Reps/Time x15 Therapeutic Exercises Supine Exercises bridge Supine Exercise Name verbal review Piriformis Stretch Supine Exercise Name verbal review: HEP - HO given. Hamstring Stretch Supine Exercise Name verbal review: HEP - HO given Standing Exercises TKE Standing Exercise Name terminal knee extension Side bilateral Resistance Lev 6Tb Reps/Minutes x10, 10x 5SH Comments focus on LLE alignment calf stretch Side bilateral Equipment Used AILEEN Reps/Minutes 30 hold x3 Comments cues for foot positioning. Gait Training Gait Activity Dynamic Walking Description Indoor, outdoor Device Used n/a Level of Assistance SBA Surface carpet, tile, cement, grass, gravel, 6 steps Distance/Duration 910ft, 8 steps asc/desc x1 Treatment Focus LE alignment, increased weightbearing into LLE Comments Pt's confidence improves and antalgic gait decreases. Cues for heels apart for foot positioning. Pt has discomfort in L front of hip coming up last step. PT-OP-T Assessment and Plan Start: 02/07/23 17:28 Freq: Status: Active Protocol: Document 03/15/23 14:18 NBM (Rec: 03/15/23 16:53 [facility] [id number]) Physical Therapy Assessment Impairments Impairments Activity Tolerance,Functional Activities,Functional Mobility ,Gait,Pain,ROM,Soft Tissue Mobility,Strength Goals Three Impairment Left hip weakness Half-Way Goal (LTG) Pt to demonstrate MMT testing of left hip flexion and abduction to improve to at least 4+/5 in order to improve pt ability to ambulate without an antalgic gait pattern. LTG Duration 04/10/23 Two Impairment Pt unable to participate in his hobby of hiking due to hip pain [employer]visor [employer] Goal (LTG) Pt to demonstrate ability to hike [place] at least 1x/ week without increased hip pain in order to return to preferred outdoor exercise activities. 03/11/23: Pt will try [employer] this week and report back . 03/15/23: Pt did 3.5 mi trail around [place] inclines/declines w/ topical diclofenac to L knee - occ twinge in ant L hip, L leg feeling heavier by end - L knee discomfort resolved completely w/ icing/elevating immediately. LTG Duration 04/10/23 One Impairment Pt does not have an appropriate home exercise program Short Term Goal (STG) Pt to be independent and compliant with an appropriate HEP 03/01/23: Hip abd/ext- pt has Lvl 3 Tb & HO. 03/11/23: Seated hip add/abd w/ Lvl 3 TB and bridge w/ ball squeeze - HO given. 03/15/23: Supine HS and piriformis (knee to opp shannon) added to HEP - HO given. STG Duration 03/10/23 Assessment Summary Assessment Treatment focus today on gait training, LE strengthening and alignment. Rich demonstrates pain apprehension and ambulates with antalgic gait but denies LLE pain except for one instance of L ant hip pain ascending last 6 step which resolves quickly. He requires cues for LLE alignment and increasing stance time on LLE w/ gluteal activation. Pt demonstrates L ankle tightness w/ L TKE and is challenged w/ keeping heel on floor. He demonstrates greatly improved self- awareness of LE alignment w/ L unilateral squats on shuttle recovery. He forgot about HS and piriformis stretches added to HEP - HO given this session. Physical Therapy Plan Frequency and Duration Frequency of Treatment 2x/Week Plan of Care Start Date 02/07/23 Plan of Care End Date 04/10/23 Therapeutic Interventions Therapeutic Interventions Gait Training,Home Exercise Program,Joint Mobilizations, Manual Therapy,Neuromuscular Re-education,Patient/Caregiver Education,Self-Care/Home Management,Soft Tissue Mobilization,Therapeutic Activities,Therapeutic Exercises Modalities Cold Pack/Ice Massage,Electric Stimulation,Hot Packs, Iontophoresis,Ultrasound Other Therapeutic Interventions Iontophoresis /c Dexamethasone , 10 mg/mL Next Visit Focus/Plan Next Note Type Treatment Note Next Visit Plan Consider gait w/ trekking pole RUE. Review HEP standing ex for progression from lvl 3 Tb. Consider soleus/Reece/ITB stretch for HEP; STM to ITB. POC: STM, hip strengthening, Ionto
--- NOTE | 2023-03-17 15:33 | PT.OTN ---
Current Diagnoses Other bursitis of hip, left hip (03/17/23) Pain in left leg (03/17/23) Weakness (03/17/23) Physical Therapy Treatment Note PT-OP-A Visit Information Start: 02/07/23 17:28 Freq: Status: Active Protocol: Document 03/17/23 14:50 DCW (Rec: 03/17/23 15:33 DCW [id number]) Out-Patient Physical Therapy Visit Information Visit Information Visit Type Treatment Note Visit Start Time 14:50 Visit Stop Time 15:30 Total Visit Minutes 40 Visit Number 6 Number of INDUSTRIAL SOCIOLOGIST Visits 0 Evaluation Information Evaluation Date 02/07/23 PT-OP-B Current Condition Start: 02/07/23 17:28 Freq: Status: Active Protocol: Document 02/07/23 14:45 DCW (Rec: 02/07/23 17:40 DCW [id number]) Current Condition History of Current Condition Onset Date ~9 month history Current Complaints left hip pain limiting usual outdoor activities History of Current Condition Pt is a very active 72 year old male presenting with a nine month history of left hip pain. Pt reports he typically hikes [place] 3-4 times a week, but since last May, has been experiencing left lateral hip pain that worses when he hikes. Finally got so bad in November that he stopped hiking, feels like it has improved some since then, but still bothers him intermittently, resulting in frequent limping. Reports he established care with a new PCP last week, and she thinks it is bursitis. Pt notes that when she was poking around on his lateral hip, he remembered that he slipped on ice and fell directly on his lateral hip last July, right where he is having his pain, but does admit that the pain had been bothering him prior to the fall. Increased stiffness and difficulty moving his leg in the morning, has tried icing it but afterward could hardly walk. Treatment Goals Patient/Caregiver Goals Return to hiking 3-4x/week PT-OP-C Subjective Start: 02/07/23 17:28 Freq: Status: Active Protocol: Document 03/17/23 14:50 DCW (Rec: 03/17/23 15:33 DCW [id number]) OP-PT Subjective Patient Comments Patient Comments Pt admits his hip is a little stiff after sitting in his car to get here, but typically will loosen up after getting up and walking ~60 seconds. PT-OP-F Manual Assessment Start: 02/07/23 17:28 Freq: Status: Active Protocol: Document 02/07/23 14:45 DCW (Rec: 02/07/23 17:45 DCW [id number]) Manual Assessments Soft Tissue Assessment Soft Tissue Mobility Assessment Point-specific pain inferior to greater trochanter, mild tightness along left ITB. Otherwise pt soft tissue very flexible PT-OP-G Mobility & Gait Start: 02/07/23 17:28 Freq: Status: Active Protocol: Document 02/07/23 14:45 DCW (Rec: 02/07/23 17:45 DCW [id number]) OP Gait Assessment Gait Gait Assistance Required: Independent Assistive Devices Assistive Device None Gait Deviations General Gait Pattern Antalgic,Decreased Stride Length,Lateral Trunk Lean Comments Gait Comments Pt ambulates with moderate left antalgic gait pattern and decreased right step length in effort to unweight left foot more quickly. PT-OP-L Special Tests Start: 02/07/23 17:28 Freq: Status: Active Protocol: Document 02/07/23 14:45 DCW (Rec: 02/07/23 17:45 DCW [id number]) Special Tests Hip Special Tests Hip Distraction Test Results Vague feeling of improved pain Samantha's Test Test Results Negative Reece Test Results Negative Straight Leg Raise Test Results Negative Scour Test Test Results Negative Piriformis Test Results Negative YANELIS Test Results Negative PT-OP-M Strength Start: 02/07/23 17:28 Freq: Status: Active Protocol: Document 02/07/23 14:45 DCW (Rec: 02/07/23 17:45 DCW [id number]) Hip Strength Hip Manual Muscle Testing Right Flexion (L2) 4+ Good+ Abduction 4+ Good+ Adduction 4+ Good+ External Rotation 4+ Good+ Internal Rotation 4+ Good+ Left Flexion (L2) 4- Good- Abduction 4- Good- Adduction 4+ Good+ External Rotation 4+ Good+ Internal Rotation 4+ Good+ Knee Strength Knee Manual Muscle Testing Right Flexion (S2) 4+ Good+ Extension (L3) 4+ Good+ Left Flexion (S2) 4+ Good+ Extension (L3) 4+ Good+ PT-OP-Q Treatments Start: 02/07/23 17:40 Freq: Status: Active Protocol: Document 03/17/23 14:50 DCW (Rec: 03/17/23 15:33 DCW [id number]) Cardio Equipment Recumbent Elliptical ([employer]) Duration (Minutes) 8 Resistance 5 Seat Position 10 seen Gym Equipment Shuttle Recovery Unilateral Squats Details cues for breathwork, LE alignment improves Resistance 50# Reps/Time x15 Bilateral Squats Details w/ ball squeeze (blue/white) Resistance 75#->100# (three new) Shuttle Recovery Platform Stable Reps/Time 2x15 Therapeutic Exercises Supine Exercises Piriformis Stretch Supine Exercise Name Knee to opposite shoulder Side bilateral Comments L>R tightness Sidelying Exercises Reverse Clamshell Sidelying Exercise Name Reverse Clamshell Clamshell Sidelying Exercise Name Clamshell Manual Therapy Treatment Soft Tissue Mobilization L hip Body Location piriformis, TFL, ITB Mobilization Type Cross-Friction,Rolling, Strumming,Sustained Pressure Intensity/Depth Moderate Body Position Sidelying PT-OP-T Assessment and Plan Start: 02/07/23 17:28 Freq: Status: Active Protocol: Document 03/17/23 14:50 DCW (Rec: 03/17/23 15:33 DCW [id number]) Physical Therapy Assessment Impairments Impairments Activity Tolerance,Functional Activities,Functional Mobility ,Gait,Pain,ROM,Soft Tissue Mobility,Strength Goals Three Impairment Left hip weakness Business Technology Architect Goal (LTG) Pt to demonstrate MMT testing of left hip flexion and abduction to improve to at least 4+/5 in order to improve pt ability to ambulate without an antalgic gait pattern. LTG Duration 04/10/23 Two Impairment Pt unable to participate in his hobby of hiking due to hip pain Business Technology Architect Goal (LTG) Pt to demonstrate ability to hike [employer] at least 1x/ week without increased hip pain in order to return to preferred outdoor exercise activities. 03/11/23: Pt will try [employer] this week and report back . 03/15/23: Pt did 3.5 mi trail around [place] [employer] inclines/declines w/ topical diclofenac to L knee - occ twinge in ant L hip, L leg feeling heavier by end - L knee discomfort resolved completely w/ icing/elevating immediately. LTG Duration 04/10/23 One Impairment Pt does not have an appropriate home exercise program Short Term Goal (STG) Pt to be independent and compliant with an appropriate HEP 03/01/23: Hip abd/ext- pt has Lvl 3 Tb & HO. 03/11/23: Seated hip add/abd w/ Lvl 3 TB and bridge w/ ball squeeze - HO given. 03/15/23: Supine HS and piriformis (knee to opp shannon) added to HEP - HO given. STG Duration 03/10/23 Assessment Summary Assessment Pt happy with how everything is going, has been compliant with his HEP, has been walking easier. Will likely be approaching discharge to independent activity. Physical Therapy Plan Frequency and Duration Frequency of Treatment 2x/Week Plan of Care Start Date 02/07/23 Plan of Care End Date 04/10/23 Therapeutic Interventions Therapeutic Interventions Gait Training,Home Exercise Program,Joint Mobilizations, Manual Therapy,Neuromuscular Re-education,Patient/Caregiver Education,Self-Care/Home Management,Soft Tissue Mobilization,Therapeutic Activities,Therapeutic Exercises Modalities Cold Pack/Ice Massage,Electric Stimulation,Hot Packs, Iontophoresis,Ultrasound Other Therapeutic Interventions Iontophoresis /c Dexamethasone , 10 mg/mL Next Visit Focus/Plan Next Note Type Treatment Note Next Visit Plan Consider gait w/ trekking pole RUE. Review HEP standing ex for progression from lvl 3 Tb. Consider soleus/Reece/ITB stretch for HEP; STM to ITB. POC: STM, hip strengthening, Ionto
--- NOTE | 2023-03-21 13:29 | PT.OTN ---
Current Diagnoses Other bursitis of hip, left hip (03/21/23) Pain in left leg (03/21/23) Weakness (03/21/23) Physical Therapy Treatment Note PT-OP-A Visit Information Start: 02/07/23 17:28 Freq: Status: Active Protocol: Document 03/21/23 12:45 DCW (Rec: 03/21/23 13:29 DCW [id number]) Out-Patient Physical Therapy Visit Information Visit Information Visit Type Treatment Note Visit Start Time 12:45 Visit Stop Time 13:30 Total Visit Minutes 45 Visit Number 7 Number of NETWORK MGR Visits 0 Evaluation Information Evaluation Date 02/07/23 PT-OP-B Current Condition Start: 02/07/23 17:28 Freq: Status: Active Protocol: Document 02/07/23 14:45 DCW (Rec: 02/07/23 17:40 DCW [id number]) Current Condition History of Current Condition Onset Date ~9 month history Current Complaints left hip pain limiting usual outdoor activities History of Current Condition Pt is a very active 72 year old male presenting with a nine month history of left hip pain. Pt reports he typically hikes [place] 3-4 times a week, but since last May, has been experiencing left lateral hip pain that worses when he hikes. Finally got so bad in November that he stopped hiking, feels like it has improved some since then, but still bothers him intermittently, resulting in frequent limping. Reports he established care with a new PCP last week, and she thinks it is bursitis. Pt notes that when she was poking around on his lateral hip, he remembered that he slipped on ice and fell directly on his lateral hip last July, right where he is having his pain, but does admit that the pain had been bothering him prior to the fall. Increased stiffness and difficulty moving his leg in the morning, has tried icing it but afterward could hardly walk. Treatment Goals Patient/Caregiver Goals Return to hiking 3-4x/week PT-OP-C Subjective Start: 02/07/23 17:28 Freq: Status: Active Protocol: Document 03/21/23 12:45 DCW (Rec: 03/21/23 13:29 DCW [id number]) OP-PT Subjective Patient Comments Patient Comments Pt notes that his left leg was pretty sore yesterday, it's better today though, although still has an antalgic giat. PT-OP-F Manual Assessment Start: 02/07/23 17:28 Freq: Status: Active Protocol: Document 02/07/23 14:45 DCW (Rec: 02/07/23 17:45 DCW [id number]) Manual Assessments Soft Tissue Assessment Soft Tissue Mobility Assessment Point-specific pain inferior to greater trochanter, mild tightness along left ITB. Otherwise pt soft tissue very flexible PT-OP-G Mobility & Gait Start: 02/07/23 17:28 Freq: Status: Active Protocol: Document 02/07/23 14:45 DCW (Rec: 02/07/23 17:45 DCW [id number]) OP Gait Assessment Gait Gait Assistance Required: Independent Assistive Devices Assistive Device None Gait Deviations General Gait Pattern Antalgic,Decreased Stride Length,Lateral Trunk Lean Comments Gait Comments Pt ambulates with moderate left antalgic gait pattern and decreased right step length in effort to unweight left foot more quickly. PT-OP-L Special Tests Start: 02/07/23 17:28 Freq: Status: Active Protocol: Document 02/07/23 14:45 DCW (Rec: 02/07/23 17:45 DCW [id number]) Special Tests Hip Special Tests Hip Distraction Test Results Vague feeling of improved pain Samantha's Test Test Results Negative Reece Test Results Negative Straight Leg Raise Test Results Negative Scour Test Test Results Negative Piriformis Test Results Negative YANELIS Test Results Negative PT-OP-M Strength Start: 02/07/23 17:28 Freq: Status: Active Protocol: Document 02/07/23 14:45 DCW (Rec: 02/07/23 17:45 DCW [id number]) Hip Strength Hip Manual Muscle Testing Right Flexion (L2) 4+ Good+ Abduction 4+ Good+ Adduction 4+ Good+ External Rotation 4+ Good+ Internal Rotation 4+ Good+ Left Flexion (L2) 4- Good- Abduction 4- Good- Adduction 4+ Good+ External Rotation 4+ Good+ Internal Rotation 4+ Good+ Knee Strength Knee Manual Muscle Testing Right Flexion (S2) 4+ Good+ Extension (L3) 4+ Good+ Left Flexion (S2) 4+ Good+ Extension (L3) 4+ Good+ PT-OP-Q Treatments Start: 02/07/23 17:40 Freq: Status: Active Protocol: Document 03/21/23 12:45 DCW (Rec: 03/21/23 13:29 DCW [id number]) Cardio Equipment Recumbent Elliptical (Biodex) Duration (Minutes) 6 Resistance 5 Seat Position 10 Gym Equipment Shuttle Recovery Unilateral Squats Details cues for breathwork, LE alignment improves Resistance 50# (two new) Reps/Time x15 Bilateral Squats Resistance 100# (three new) Shuttle Recovery Platform Stable Reps/Time 2x15 Therapeutic Exercises Standing Exercises calf stretch Side bilateral Equipment Used AILEEN Reps/Minutes 30 hold x3 Other Exercises Resisted Ambulation Other Exercise Name Resisted side-stepping Resistance Green loop Manual Therapy Treatment Soft Tissue Mobilization L hip Body Location piriformis, TFL, ITB Mobilization Type Cross-Friction,Rolling, Strumming,Sustained Pressure Intensity/Depth Moderate Body Position Sidelying Manual Traction Lower Extremity Details L LE Long-axos traction /c strap Body Position Supine PT-OP-T Assessment and Plan Start: 02/07/23 17:28 Freq: Status: Active Protocol: Document 03/21/23 12:45 DCW (Rec: 03/21/23 13:29 DCW [id number]) Physical Therapy Assessment Impairments Impairments Activity Tolerance,Functional Activities,Functional Mobility ,Gait,Pain,ROM,Soft Tissue Mobility,Strength Goals Three Impairment Left hip weakness Nursing Home Goal (LTG) Pt to demonstrate MMT testing of left hip flexion and abduction to improve to at least 4+/5 in order to improve pt ability to ambulate without an antalgic gait pattern. LTG Duration 04/10/23 Two Impairment Pt unable to participate in his hobby of hiking due to hip pain Nursing Home Goal (LTG) Pt to demonstrate ability to hike [place] at least 1x/ week without increased hip pain in order to return to preferred outdoor exercise activities. 03/11/23: Pt will try [employer] this week and report back . 03/15/23: Pt did 3.5 [address] trail around base of [employer] inclines/declines w/ topical diclofenac to L knee - occ twinge in ant L hip, L leg feeling heavier by end - L knee discomfort resolved completely w/ icing/elevating immediately. LTG Duration 04/10/23 One Impairment Pt does not have an appropriate home exercise program Short Term Goal (STG) Pt to be independent and compliant with an appropriate HEP 03/01/23: Hip abd/ext- pt has Lvl 3 Tb & HO. 03/11/23: Seated hip add/abd w/ Lvl 3 TB and bridge w/ ball squeeze - HO given. 03/15/23: Supine HS and piriformis (knee to opp shannon) added to HEP - HO given. STG Duration 03/10/23 Assessment Summary Assessment Pt shows good progress during sessions, but returns the following session still with significant limping and decreased mobility. did very well today with LE traction and STM, may benefit from additional appointments in order to get to point feeling more comfortable with independent activities. Physical Therapy Plan Frequency and Duration Frequency of Treatment 2x/Week Plan of Care Start Date 02/07/23 Plan of Care End Date 04/10/23 Therapeutic Interventions Therapeutic Interventions Gait Training,Home Exercise Program,Joint Mobilizations, Manual Therapy,Neuromuscular Re-education,Patient/Caregiver Education,Self-Care/Home Management,Soft Tissue Mobilization,Therapeutic Activities,Therapeutic Exercises Modalities Cold Pack/Ice Massage,Electric Stimulation,Hot Packs, Iontophoresis,Ultrasound Other Therapeutic Interventions Iontophoresis /c Dexamethasone , 10 mg/mL Next Visit Focus/Plan Next Note Type Treatment Note Next Visit Plan Consider gait w/ trekking pole RUE. Review HEP standing ex for progression from lvl 3 Tb. Consider soleus/Reece/ITB stretch for HEP; STM to ITB. POC: STM, hip strengthening, Ionto
--- NOTE | 2023-03-23 13:31 | PT.OTN ---
Current Diagnoses Other bursitis of hip, left hip (03/23/23) Pain in left leg (03/23/23) Weakness (03/23/23) Physical Therapy Treatment Note PT-OP-A Visit Information Start: 02/07/23 17:28 Freq: Status: Active Protocol: Document 03/23/23 12:46 DCW (Rec: 03/23/23 13:31 DCW [id number]) Out-Patient Physical Therapy Visit Information Visit Information Visit Type Treatment Note Visit Start Time 12:46 Visit Stop Time 13:30 Total Visit Minutes 44 Visit Number 8 Number of KEY PERSON Visits 0 Evaluation Information Evaluation Date 02/07/23 PT-OP-B Current Condition Start: 02/07/23 17:28 Freq: Status: Active Protocol: Document 02/07/23 14:45 DCW (Rec: 02/07/23 17:40 DCW [id number]) Current Condition History of Current Condition Onset Date ~9 month history Current Complaints left hip pain limiting usual outdoor activities History of Current Condition Pt is a very active 72 year old male presenting with a nine month history of left hip pain. Pt reports he typically hikes [place] 3-4 times a week, but since last May, has been experiencing left lateral hip pain that worses when he hikes. Finally got so bad in November that he stopped hiking, feels like it has improved some since then, but still bothers him intermittently, resulting in frequent limping. Reports he established care with a new PCP last week, and she thinks it is bursitis. Pt notes that when she was poking around on his lateral hip, he remembered that he slipped on ice and fell directly on his lateral hip last July, right where he is having his pain, but does admit that the pain had been bothering him prior to the fall. Increased stiffness and difficulty moving his leg in the morning, has tried icing it but afterward could hardly walk. Treatment Goals Patient/Caregiver Goals Return to hiking 3-4x/week PT-OP-C Subjective Start: 02/07/23 17:28 Freq: Status: Active Protocol: Document 03/23/23 12:46 DCW (Rec: 03/23/23 13:31 DCW [id number]) OP-PT Subjective Patient Comments Patient Comments Pt walking noticeably better today, significant decrease in antalgia. PT-OP-F Manual Assessment Start: 02/07/23 17:28 Freq: Status: Active Protocol: Document 02/07/23 14:45 DCW (Rec: 02/07/23 17:45 DCW [id number]) Manual Assessments Soft Tissue Assessment Soft Tissue Mobility Assessment Point-specific pain inferior to greater trochanter, mild tightness along left ITB. Otherwise pt soft tissue very flexible PT-OP-G Mobility & Gait Start: 02/07/23 17:28 Freq: Status: Active Protocol: Document 02/07/23 14:45 DCW (Rec: 02/07/23 17:45 DCW [id number]) OP Gait Assessment Gait Gait Assistance Required: Independent Assistive Devices Assistive Device None Gait Deviations General Gait Pattern Antalgic,Decreased Stride Length,Lateral Trunk Lean Comments Gait Comments Pt ambulates with moderate left antalgic gait pattern and decreased right step length in effort to unweight left foot more quickly. PT-OP-L Special Tests Start: 02/07/23 17:28 Freq: Status: Active Protocol: Document 02/07/23 14:45 DCW (Rec: 02/07/23 17:45 DCW [id number]) Special Tests Hip Special Tests Hip Distraction Test Results Vague feeling of improved pain Samantha's Test Test Results Negative Reece Test Results Negative Straight Leg Raise Test Results Negative Scour Test Test Results Negative Piriformis Test Results Negative YANELIS Test Results Negative PT-OP-M Strength Start: 02/07/23 17:28 Freq: Status: Active Protocol: Document 02/07/23 14:45 DCW (Rec: 02/07/23 17:45 DCW [id number]) Hip Strength Hip Manual Muscle Testing Right Flexion (L2) 4+ Good+ Abduction 4+ Good+ Adduction 4+ Good+ External Rotation 4+ Good+ Internal Rotation 4+ Good+ Left Flexion (L2) 4- Good- Abduction 4- Good- Adduction 4+ Good+ External Rotation 4+ Good+ Internal Rotation 4+ Good+ Knee Strength Knee Manual Muscle Testing Right Flexion (S2) 4+ Good+ Extension (L3) 4+ Good+ Left Flexion (S2) 4+ Good+ Extension (L3) 4+ Good+ PT-OP-Q Treatments Start: 02/07/23 17:40 Freq: Status: Active Protocol: Document 03/23/23 12:46 DCW (Rec: 03/23/23 13:31 DCW [id number]) Cardio Equipment Recumbent Elliptical (Biodex) Duration (Minutes) 6 Resistance 5 Seat Position 10 Gym Equipment Shuttle Recovery Unilateral Squats Resistance 50# (two new) Reps/Time x15 Bilateral Squats Resistance 100# (three new) Shuttle Recovery Platform Stable Reps/Time 2x15 Shuttle Balance Red Details WBOS, Staggered, Lateral weight shift Manual Therapy Treatment Soft Tissue Mobilization L hip Body Location piriformis, TFL, ITB Mobilization Type Cross-Friction,Rolling, Strumming,Sustained Pressure Intensity/Depth Moderate Body Position Sidelying Manual Traction Lower Extremity Details L LE Long-axos traction /c strap Body Position Supine PT-OP-T Assessment and Plan Start: 02/07/23 17:28 Freq: Status: Active Protocol: Document 03/23/23 12:46 DCW (Rec: 03/23/23 13:31 DCW [id number]) Physical Therapy Assessment Impairments Impairments Activity Tolerance,Functional Activities,Functional Mobility ,Gait,Pain,ROM,Soft Tissue Mobility,Strength Goals Three Impairment Left hip weakness Dispatcher Service Chief Goal (LTG) Pt to demonstrate MMT testing of left hip flexion and abduction to improve to at least 4+/5 in order to improve pt ability to ambulate without an antalgic gait pattern. LTG Duration 04/10/23 Two Impairment Pt unable to participate in his hobby of hiking due to hip pain Dispatcher Service Chief Goal (LTG) Pt to demonstrate ability to hike [place] at least 1x/ week without increased hip pain in order to return to preferred outdoor exercise activities. 03/11/23: Pt will try [employer] [facility] [employer] this week and report back . 03/15/23: Pt did 3.[address] around base of [facility] inclines/declines w/ topical diclofenac to L knee - occ twinge in ant L hip, L leg feeling heavier by end - L knee discomfort resolved completely w/ icing/elevating immediately. LTG Duration 04/10/23 One Impairment Pt does not have an appropriate home exercise program Short Term Goal (STG) Pt to be independent and compliant with an appropriate HEP 03/01/23: Hip abd/ext- pt has Lvl 3 Tb & HO. 03/11/23: Seated hip add/abd w/ Lvl 3 TB and bridge w/ ball squeeze - HO given. 03/15/23: Supine HS and piriformis (knee to opp shannon) added to HEP - HO given. STG Duration 03/10/23 Assessment Summary Assessment Pt showing significantly more progress today than previously , walking much better and experienced less tenderness with palpation. Did well with Shuttle Balance, felt it was a very good LE workout. Physical Therapy Plan Frequency and Duration Frequency of Treatment 2x/Week Plan of Care Start Date 02/07/23 Plan of Care End Date 04/10/23 Therapeutic Interventions Therapeutic Interventions Gait Training,Home Exercise Program,Joint Mobilizations, Manual Therapy,Neuromuscular Re-education,Patient/Caregiver Education,Self-Care/Home Management,Soft Tissue Mobilization,Therapeutic Activities,Therapeutic Exercises Modalities Cold Pack/Ice Massage,Electric Stimulation,Hot Packs, Iontophoresis,Ultrasound Other Therapeutic Interventions Iontophoresis /c Dexamethasone , 10 mg/mL Next Visit Focus/Plan Next Note Type Treatment Note Next Visit Plan Consider soleus/Reece/ITB stretch for HEP; STM to ITB. POC: STM, hip strengthening, Ionto
--- NOTE | 2023-03-30 10:52 | PT.OTN ---
Current Diagnoses Other bursitis of hip, left hip (03/30/23) Pain in left leg (03/30/23) Weakness (03/30/23) Physical Therapy Treatment Note PT-OP-A Visit Information Start: 02/07/23 17:28 Freq: Status: Active Protocol: Document 03/30/23 10:00 SW (Rec: 03/30/23 10:52 SW [id number]) Out-Patient Physical Therapy Visit Information Visit Information Visit Type Treatment Note Visit Start Time 10:00 Visit Stop Time 10:43 Total Visit Minutes 43 Visit Number 9 Number of APPLIANCE REPAIR TECHNICIAN Visits 1 PT-OP-B Current Condition Start: 02/07/23 17:28 Freq: Status: Active Protocol: Document 02/07/23 14:45 DCW (Rec: 02/07/23 17:40 DCW [id number]) Current Condition History of Current Condition Onset Date ~9 month history Current Complaints left hip pain limiting usual outdoor activities History of Current Condition Pt is a very active 72 year old male presenting with a nine month history of left hip pain. Pt reports he typically hikes [place] 3-4 times a week, but since last May, has been experiencing left lateral hip pain that worses when he hikes. Finally got so bad in November that he stopped hiking, feels like it has improved some since then, but still bothers him intermittently, resulting in frequent limping. Reports he established care with a new PCP last week, and she thinks it is bursitis. Pt notes that when she was poking around on his lateral hip, he remembered that he slipped on ice and fell directly on his lateral hip last July, right where he is having his pain, but does admit that the pain had been bothering him prior to the fall. Increased stiffness and difficulty moving his leg in the morning, has tried icing it but afterward could hardly walk. Treatment Goals Patient/Caregiver Goals Return to hiking 3-4x/week PT-OP-C Subjective Start: 02/07/23 17:28 Freq: Status: Active Protocol: Document 03/30/23 10:00 SW (Rec: 03/30/23 10:52 SW [id number]) OP-PT Subjective Patient Comments Patient Comments Pt feels like he is doing better. [place], first climb he has done, felt good but knee a little swollen. PT-OP-F Manual Assessment Start: 02/07/23 17:28 Freq: Status: Active Protocol: Document 02/07/23 14:45 DCW (Rec: 02/07/23 17:45 DCW [id number]) Manual Assessments Soft Tissue Assessment Soft Tissue Mobility Assessment Point-specific pain inferior to greater trochanter, mild tightness along left ITB. Otherwise pt soft tissue very flexible PT-OP-G Mobility & Gait Start: 02/07/23 17:28 Freq: Status: Active Protocol: Document 02/07/23 14:45 DCW (Rec: 02/07/23 17:45 DCW [id number]) OP Gait Assessment Gait Gait Assistance Required: Independent Assistive Devices Assistive Device None Gait Deviations General Gait Pattern Antalgic,Decreased Stride Length,Lateral Trunk Lean Comments Gait Comments Pt ambulates with moderate left antalgic gait pattern and decreased right step length in effort to unweight left foot more quickly. PT-OP-L Special Tests Start: 02/07/23 17:28 Freq: Status: Active Protocol: Document 02/07/23 14:45 DCW (Rec: 02/07/23 17:45 DCW [id number]) Special Tests Hip Special Tests Hip Distraction Test Results Vague feeling of improved pain Samantha's Test Test Results Negative Reece Test Results Negative Straight Leg Raise Test Results Negative Scour Test Test Results Negative Piriformis Test Results Negative YANELIS Test Results Negative PT-OP-M Strength Start: 02/07/23 17:28 Freq: Status: Active Protocol: Document 02/07/23 14:45 DCW (Rec: 02/07/23 17:45 DCW [id number]) Hip Strength Hip Manual Muscle Testing Right Flexion (L2) 4+ Good+ Abduction 4+ Good+ Adduction 4+ Good+ External Rotation 4+ Good+ Internal Rotation 4+ Good+ Left Flexion (L2) 4- Good- Abduction 4- Good- Adduction 4+ Good+ External Rotation 4+ Good+ Internal Rotation 4+ Good+ Knee Strength Knee Manual Muscle Testing Right Flexion (S2) 4+ Good+ Extension (L3) 4+ Good+ Left Flexion (S2) 4+ Good+ Extension (L3) 4+ Good+ PT-OP-Q Treatments Start: 02/07/23 17:40 Freq: Status: Active Protocol: Document 03/30/23 10:00 SW (Rec: 03/30/23 10:52 SW [id number]) Cardio Equipment Recumbent Elliptical (Biodex) Duration (Minutes) 6 Resistance 5 Seat Position 10 Gym Equipment Shuttle Recovery Unilateral Squats Resistance 50# (two new) Reps/Time x15 Bilateral Squats Resistance 112# Shuttle Recovery Platform Stable Reps/Time 2x15 Therapeutic Exercises Other Exercises Resisted Ambulation Other Exercise Name Resisted side-stepping Resistance Green loop Manual Therapy Treatment Soft Tissue Mobilization L hip Body Location piriformis, TFL, ITB Mobilization Type Cross-Friction,Rolling, Strumming,Sustained Pressure Intensity/Depth Moderate Body Position Sidelying Manual Traction Lower Extremity Details L LE Long-axos traction /c strap Body Position Supine PT-OP-T Assessment and Plan Start: 02/07/23 17:28 Freq: Status: Active Protocol: Document 03/30/23 10:00 SW (Rec: 03/30/23 10:52 SW [id number]) Physical Therapy Assessment Goals Three Impairment Left hip weakness Business Analyst Consultant Goal (LTG) Pt to demonstrate MMT testing of left hip flexion and abduction to improve to at least 4+/5 in order to improve pt ability to ambulate without an antalgic gait pattern. LTG Duration 04/10/23 Two Impairment Pt unable to participate in his hobby of hiking due to hip pain Business Analyst Consultant Goal (LTG) Pt to demonstrate ability to hike [employer] at least 1x/ week without increased hip pain in order to return to preferred outdoor exercise activities. 03/11/23: Pt will try [employer] this week and report back . 03/15/23: Pt did 3.[address] around base of [employer] inclines/declines w/ topical diclofenac to L knee - occ twinge in ant L hip, L leg feeling heavier by end - L knee discomfort resolved completely w/ icing/elevating immediately. LTG Duration 04/10/23 One Impairment Pt does not have an appropriate home exercise program Short Term Goal (STG) Pt to be independent and compliant with an appropriate HEP 03/01/23: Hip abd/ext- pt has Lvl 3 Tb & HO. 03/11/23: Seated hip add/abd w/ Lvl 3 TB and bridge w/ ball squeeze - HO given. 03/15/23: Supine HS and piriformis (knee to opp shannon) added to HEP - HO given. STG Duration 03/10/23 Assessment Summary Assessment Progressed weight w/ bilateral squats, tolerated well without increase in symptoms, required multiple verbal cues for eccentric control. Pt attempted first climb, knee swelling, applied topical agent and iced, relieved the next day, improvement from his flat level walks he has been doing. Physical Therapy Plan Frequency and Duration Frequency of Treatment 2x/Week Plan of Care Start Date 02/07/23 Plan of Care End Date 04/10/23 Therapeutic Interventions Therapeutic Interventions Gait Training,Home Exercise Program,Joint Mobilizations, Manual Therapy,Neuromuscular Re-education,Patient/Caregiver Education,Self-Care/Home Management,Soft Tissue Mobilization,Therapeutic Activities,Therapeutic Exercises Modalities Cold Pack/Ice Massage,Electric Stimulation,Hot Packs, Iontophoresis,Ultrasound Other Therapeutic Interventions Iontophoresis /c Dexamethasone , 10 mg/mL Next Visit Focus/Plan Next Note Type Treatment Note Next Visit Plan Consider soleus/Reece/ITB stretch for HEP; STM to ITB. POC: STM, hip strengthening, Ionto
--- NOTE | 2023-04-06 12:50 | PT.OTN ---
Current Diagnoses Other bursitis of hip, left hip (04/06/23) Pain in left leg (04/06/23) Weakness (04/06/23) Physical Therapy Treatment Note PT-OP-A Visit Information Start: 02/07/23 17:28 Freq: Status: Active Protocol: Document 04/06/23 10:01 JESSICA (Rec: 04/06/23 10:56 [id number]) Out-Patient Physical Therapy Visit Information Visit Information Visit Type Treatment Note Visit Start Time 10:01 Visit Stop Time 10:45 Total Visit Minutes 44 Visit Number 10 Number of DIGITAL TECH Visits 2 PT-OP-B Current Condition Start: 02/07/23 17:28 Freq: Status: Active Protocol: Document 02/07/23 14:45 DCW (Rec: 02/07/23 17:40 DCW [id number]) Current Condition History of Current Condition Onset Date ~9 month history Current Complaints left hip pain limiting usual outdoor activities History of Current Condition Pt is a very active 72 year old male presenting with a nine month history of left hip pain. Pt reports he typically hikes [place] 3-4 times a week, but since last May, has been experiencing left lateral hip pain that worses when he hikes. Finally got so bad in November that he stopped hiking, feels like it has improved some since then, but still bothers him intermittently, resulting in frequent limping. Reports he established care with a new PCP last week, and she thinks it is bursitis. Pt notes that when she was poking around on his lateral hip, he remembered that he slipped on ice and fell directly on his lateral hip last July, right where he is having his pain, but does admit that the pain had been bothering him prior to the fall. Increased stiffness and difficulty moving his leg in the morning, has tried icing it but afterward could hardly walk. Treatment Goals Patient/Caregiver Goals Return to hiking 3-4x/week PT-OP-C Subjective Start: 02/07/23 17:28 Freq: Status: Active Protocol: Document 04/06/23 10:01 SW (Rec: 04/06/23 10:56 SW [id number]) OP-PT Subjective Patient Comments Patient Comments Pt feels much better yesterday and today than before. In general he feels much better than when he started PT. Noticed he feels better when he walks than when he doesn't get his walk in. PT-OP-F Manual Assessment Start: 02/07/23 17:28 Freq: Status: Active Protocol: Document 02/07/23 14:45 DCW (Rec: 02/07/23 17:45 DCW [id number]) Manual Assessments Soft Tissue Assessment Soft Tissue Mobility Assessment Point-specific pain inferior to greater trochanter, mild tightness along left ITB. Otherwise pt soft tissue very flexible PT-OP-G Mobility & Gait Start: 02/07/23 17:28 Freq: Status: Active Protocol: Document 02/07/23 14:45 DCW (Rec: 02/07/23 17:45 DCW [id number]) OP Gait Assessment Gait Gait Assistance Required: Independent Assistive Devices Assistive Device None Gait Deviations General Gait Pattern Antalgic,Decreased Stride Length,Lateral Trunk Lean Comments Gait Comments Pt ambulates with moderate left antalgic gait pattern and decreased right step length in effort to unweight left foot more quickly. PT-OP-L Special Tests Start: 02/07/23 17:28 Freq: Status: Active Protocol: Document 02/07/23 14:45 DCW (Rec: 02/07/23 17:45 DCW [id number]) Special Tests Hip Special Tests Hip Distraction Test Results Vague feeling of improved pain Samantha's Test Test Results Negative Reece Test Results Negative Straight Leg Raise Test Results Negative Scour Test Test Results Negative Piriformis Test Results Negative YANELIS Test Results Negative PT-OP-M Strength Start: 02/07/23 17:28 Freq: Status: Active Protocol: Document 02/07/23 14:45 DCW (Rec: 02/07/23 17:45 DCW [id number]) Hip Strength Hip Manual Muscle Testing Right Flexion (L2) 4+ Good+ Abduction 4+ Good+ Adduction 4+ Good+ External Rotation 4+ Good+ Internal Rotation 4+ Good+ Left Flexion (L2) 4- Good- Abduction 4- Good- Adduction 4+ Good+ External Rotation 4+ Good+ Internal Rotation 4+ Good+ Knee Strength Knee Manual Muscle Testing Right Flexion (S2) 4+ Good+ Extension (L3) 4+ Good+ Left Flexion (S2) 4+ Good+ Extension (L3) 4+ Good+ PT-OP-Q Treatments Start: 02/07/23 17:40 Freq: Status: Active Protocol: Document 04/06/23 10:01 (Rec: 04/06/23 10:56 [id number]) Cardio Equipment Recumbent Elliptical (Biodex) Duration (Minutes) 6 Resistance 5>6 (1 min) Seat Position 10 Gym Equipment Shuttle Recovery Unilateral Squats Resistance 50# (two new) Reps/Time x15 Bilateral Squats Resistance 112# Shuttle Recovery Platform Stable Reps/Time 2x15 Therapeutic Exercises Standing Exercises Hip Extension Standing Exercise Name Hip Extension Side bilateral Resistance Lv 4 T-band Equipment Used mirror Reps/Minutes x10, x5 w/ mirror, x5 w/o Hip Abduction Standing Exercise Name Hip Abduction Side bilateral Resistance Lv 4 T-band Reps/Minutes x10 ea Comments cues for excessive hip ER, upright posture, eccentric control no discomfort Manual Therapy Treatment Soft Tissue Mobilization L hip Body Location piriformis, TFL, ITB Mobilization Type Cross-Friction,Rolling, Strumming,Sustained Pressure Intensity/Depth Moderate Body Position Sidelying Manual Traction Lower Extremity Details L LE Long-axos traction /c strap Body Position Supine Manual Techniques ROM Type PROM Body Location Left Hip Body Position Supine PT-OP-T Assessment and Plan Start: 02/07/23 17:28 Freq: Status: Active Protocol: Document 04/06/23 10:01 (Rec: 04/06/23 10:56 [id number]) Physical Therapy Assessment Goals Three Impairment Left hip weakness Fpc Goal (LTG) Pt to demonstrate MMT testing of left hip flexion and abduction to improve to at least 4+/5 in order to improve pt ability to ambulate without an antalgic gait pattern. LTG Duration 04/10/23 Two Impairment Pt unable to participate in his hobby of hiking due to hip pain Fpc Goal (LTG) Pt to demonstrate ability to hike [place] at least 1x/ week without increased hip pain in order to return to preferred outdoor exercise activities. 03/11/23: Pt will try [employer] this week and report back . 03/15/23: Pt did 3.5 [address] trail around base of [employer] inclines/declines w/ topical diclofenac to L knee - occ twinge in ant L hip, L leg feeling heavier by end - L knee discomfort resolved completely w/ icing/elevating immediately. LTG Duration 04/10/23 One Impairment Pt does not have an appropriate home exercise program Short Term Goal (STG) Pt to be independent and compliant with an appropriate HEP 03/01/23: Hip abd/ext- pt has Lvl 3 Tb & HO. 03/11/23: Seated hip add/abd w/ Lvl 3 TB and bridge w/ ball squeeze - HO given. 03/15/23: Supine HS and piriformis (knee to opp shannon) added to HEP - HO given. STG Duration 03/10/23 Assessment Summary Assessment Reviewed HEP for LE strength progression. Pt challenged with correct execution of exercises, educated patient on continueing prescribed resistance with increased reps and focus on correct form. Ambulated with decreased antalgic gait post therex today. Physical Therapy Plan Frequency and Duration Frequency of Treatment 2x/Week Plan of Care Start Date 02/07/23 Plan of Care End Date 04/10/23 Therapeutic Interventions Therapeutic Interventions Gait Training,Home Exercise Program,Joint Mobilizations, Manual Therapy,Neuromuscular Re-education,Patient/Caregiver Education,Self-Care/Home Management,Soft Tissue Mobilization,Therapeutic Activities,Therapeutic Exercises Modalities Cold Pack/Ice Massage,Electric Stimulation,Hot Packs, Iontophoresis,Ultrasound Other Therapeutic Interventions Iontophoresis /c Dexamethasone , 10 mg/mL Next Visit Focus/Plan Next Note Type Treatment Note Next Visit Plan Consider soleus/Reece/ITB stretch for HEP; STM to ITB. POC: STM, hip strengthening, Ionto
--- NOTE | 2023-04-13 11:14 | PT.OTN ---
Current Diagnoses Other bursitis of hip, left hip (04/13/23) Pain in left leg (04/13/23) Weakness (04/13/23) Physical Therapy Treatment Note PT-OP-A Visit Information Start: 02/07/23 17:28 Freq: Status: Active Protocol: Document 04/13/23 10:19 DCW (Rec: 04/13/23 11:14 DCW [id number]) Out-Patient Physical Therapy Visit Information Visit Information Visit Type Progress Note Visit Start Time 10:19 Visit Stop Time 11:00 Total Visit Minutes 41 Visit Number 12 Number of HISTORY TEACHER Visits 0 Evaluation Information Evaluation Date 02/07/23 PT-OP-B Current Condition Start: 02/07/23 17:28 Freq: Status: Active Protocol: Document 02/07/23 14:45 DCW (Rec: 02/07/23 17:40 DCW [id number]) Current Condition History of Current Condition Onset Date ~9 month history Current Complaints left hip pain limiting usual outdoor activities History of Current Condition Pt is a very active 72 year old male presenting with a nine month history of left hip pain. Pt reports he typically hikes [place] 3-4 times a week, but since last May, has been experiencing left lateral hip pain that worses when he hikes. Finally got so bad in November that he stopped hiking, feels like it has improved some since then, but still bothers him intermittently, resulting in frequent limping. Reports he established care with a new PCP last week, and she thinks it is bursitis. Pt notes that when she was poking around on his lateral hip, he remembered that he slipped on ice and fell directly on his lateral hip last July, right where he is having his pain, but does admit that the pain had been bothering him prior to the fall. Increased stiffness and difficulty moving his leg in the morning, has tried icing it but afterward could hardly walk. Treatment Goals Patient/Caregiver Goals Return to hiking 3-4x/week PT-OP-C Subjective Start: 02/07/23 17:28 Freq: Status: Active Protocol: Document 04/13/23 10:19 DCW (Rec: 04/13/23 11:14 DCW [id number]) OP-PT Subjective Patient Comments Patient Comments Pt feeling much better overall , still has some difficulty when initially standing up and getting moving, but has noticed it improved much more quickly. PT-OP-F Manual Assessment Start: 02/07/23 17:28 Freq: Status: Active Protocol: Document 04/13/23 10:19 DCW (Rec: 04/13/23 10:25 DCW [id number]) Manual Assessments Soft Tissue Assessment Soft Tissue Mobility Assessment General soreness along ITB with palpation, nothing too bad. PT-OP-G Mobility & Gait Start: 02/07/23 17:28 Freq: Status: Active Protocol: Document 04/13/23 10:19 DCW (Rec: 04/13/23 10:25 DCW [id number]) OP Gait Assessment Gait Gait Assistance Required: Independent Assistive Devices Assistive Device None Gait Deviations General Gait Pattern Antalgic,Decreased Stride Length,Lateral Trunk Lean Comments Gait Comments Pt ambulates immediate with moderate left antalgic gait pattern, however improves immensely after walking ~one minute as he loosens up. PT-OP-L Special Tests Start: 02/07/23 17:28 Freq: Status: Active Protocol: Document 04/13/23 10:19 DCW (Rec: 04/13/23 10:25 DCW [id number]) Special Tests Hip Special Tests Hip Distraction Test Results Vague feeling of improved pain Samantha's Test Test Results Negative Reece Test Results Negative Straight Leg Raise Test Results Negative Scour Test Test Results Negative Piriformis Test Results Negative YANELIS Test Results Negative PT-OP-M Strength Start: 02/07/23 17:28 Freq: Status: Active Protocol: Document 04/13/23 10:19 DCW (Rec: 04/13/23 10:25 DCW [id number]) Hip Strength Hip Manual Muscle Testing Right Flexion (L2) 4+ Good+ Abduction 4+ Good+ Adduction 4+ Good+ External Rotation 4+ Good+ Internal Rotation 4+ Good+ Left Flexion (L2) 4+ Good+ Abduction 4+ Good+ Adduction 4+ Good+ External Rotation 4+ Good+ Internal Rotation 4+ Good+ PT-OP-Q Treatments Start: 02/07/23 17:40 Freq: Status: Active Protocol: Document 04/13/23 10:19 DCW (Rec: 04/13/23 11:14 DCW [id number]) Gym Equipment Shuttle Recovery Unilateral Squats Details B, vc for RLE alignment Resistance 62# (two new) Reps/Time x15 Bilateral Squats Details blue/white ball Resistance 112# (Three new) Shuttle Recovery Platform Unstable Reps/Time x15 Therapeutic Exercises Sitting Exercises Self-STM Sitting Exercise Name Self-STM /c rolling pin, foam roll Side bilateral Other Exercises Step-ups Other Exercise Name Step-ups Side left Equipment Used 6 step PT-OP-T Assessment and Plan Start: 02/07/23 17:28 Freq: Status: Active Protocol: Document 04/13/23 10:19 DCW (Rec: 04/13/23 11:14 DCW [id number]) Physical Therapy Assessment Goals Three Impairment Left hip weakness Group Home Goal (LTG) Pt to demonstrate MMT testing of left hip flexion and abduction to improve to at least 4+/5 in order to improve pt ability to ambulate without an antalgic gait pattern. LTG Duration Met Two Impairment Pt unable to participate in his hobby of hiking due to hip pain Group Home Goal (LTG) Pt to demonstrate ability to hike [employer] at least 1x/ week without increased hip pain in order to return to preferred outdoor exercise activities. 03/11/23: Pt will try [email or web address] this week and report back . 03/15/23: Pt did 3.5 [address] trail around base of [employer] inclines/declines w/ topical diclofenac to L knee - occ twinge in ant L hip, L leg feeling heavier by end - L knee discomfort resolved completely w/ icing/elevating immediately. 04/11/23: Pt hiked [place] w / pain initial 25-20 min ~1 mi which resolved. He states his body felt good with uphill effort LTG Duration 05/10/23 One Impairment Pt does not have an appropriate home exercise program Short Term Goal (STG) Pt to be independent and compliant with an appropriate HEP 03/01/23: Hip abd/ext- pt has Lvl 3 Tb & HO. 03/11/23: Seated hip add/abd w/ Lvl 3 TB and bridge w/ ball squeeze - HO given. 03/15/23: Supine HS and piriformis (knee to opp shannon) added to HEP - HO given. STG Duration Met Assessment Summary Assessment PT responding very well to skilled therapy, although still struggling some getting back to prior hiking levels. Will likely benefit from continued skilled therapy for another 4-6 visits in order to ensure compliance with HEP and improve gait, especially initially upon standing. Physical Therapy Plan Frequency and Duration Frequency of Treatment 2x/Week Plan of Care Start Date 04/13/23 Plan of Care End Date 05/13/23 Therapeutic Interventions Therapeutic Interventions Gait Training,Home Exercise Program,Joint Mobilizations, Manual Therapy,Neuromuscular Re-education,Patient/Caregiver Education,Self-Care/Home Management,Soft Tissue Mobilization,Therapeutic Activities,Therapeutic Exercises Modalities Cold Pack/Ice Massage,Electric Stimulation,Hot Packs, Iontophoresis,Ultrasound Other Therapeutic Interventions Iontophoresis /c Dexamethasone , 10 mg/mL Next Visit Focus/Plan Next Note Type Treatment Note Next Visit Plan Review self-STM (rolling pin to ITB/quads). Consider soleus/Reece/ITB stretch for HEP; STM to ITB. POC: STM, hip strengthening, Ionto
--- NOTE | 2023-04-13 11:14 | PT.OPPOC ---
Physical, Occupational & Speech Therapy At [facility] Current Diagnoses Other bursitis of hip, left hip (04/13/23) Pain in left leg (04/13/23) Weakness (04/13/23) Visit Care Team Role Provider Type Nisa Cobb PA-C Family Provider Physician Marketing Agent Primary Care Provider Specialty: Medical Address: [address] [place] [address], [id number] Email: [email or web address] [employer] Brian Attending Provider Advanced Jointer Machine Referring Provider Specialty: Family Practice Address: [address] [facility], [address], [place], [address] Phone: Fax: Email: [email or web address] Plan Of Care PT-OP-T Assessment and Plan Start: 02/07/23 17:28 Freq: Status: Active Protocol: Document 04/13/23 10:19 DCW (Rec: 04/13/23 11:14 DCW [id number]) Physical Therapy Assessment Goals Three Impairment Left hip weakness Administrative Services Coordinator Goal (LTG) Pt to demonstrate MMT testing of left hip flexion and abduction to improve to at least 4+/5 in order to improve pt ability to ambulate without an antalgic gait pattern. LTG Duration Met Two Impairment Pt unable to participate in his hobby of hiking due to hip pain Administrative Services Coordinator Goal (LTG) Pt to demonstrate ability to hike [place] at least 1x/ week without increased hip pain in order to return to preferred outdoor exercise activities. 03/11/23: Pt will try [employer] this week and report back . 03/15/23: Pt did 3.5 [address] trail around base of [place] inclines/declines w/ topical diclofenac to L knee - occ twinge in ant L hip, L leg feeling heavier by end - L knee discomfort resolved completely w/ icing/elevating immediately. 04/11/23: Pt hiked [place] w / pain initial 25-20 min ~1 mi which resolved. He states his body felt good with uphill effort LTG Duration 05/10/23 One Impairment Pt does not have an appropriate home exercise program Short Term Goal (STG) Pt to be independent and compliant with an appropriate HEP 03/01/23: Hip abd/ext- pt has Lvl 3 Tb & HO. 03/11/23: Seated hip add/abd w/ Lvl 3 TB and bridge w/ ball squeeze - HO given. 03/15/23: Supine HS and piriformis (knee to opp shannon) added to HEP - HO given. STG Duration Met Assessment Summary Assessment PT responding very well to skilled therapy, although still struggling some getting back to prior hiking levels. Will likely benefit from continued skilled therapy for another 4-6 visits in order to ensure compliance with HEP and improve gait, especially initially upon standing. Physical Therapy Plan Frequency and Duration Frequency of Treatment 2x/Week Plan of Care Start Date 04/13/23 Plan of Care End Date 05/13/23 Therapeutic Interventions Therapeutic Interventions Gait Training,Home Exercise Program,Joint Mobilizations, Manual Therapy,Neuromuscular Re-education,Patient/Caregiver Education,Self-Care/Home Management,Soft Tissue Mobilization,Therapeutic Activities,Therapeutic Exercises Modalities Cold Pack/Ice Massage,Electric Stimulation,Hot Packs, Iontophoresis,Ultrasound Other Therapeutic Interventions Iontophoresis /c Dexamethasone , 10 mg/mL Next Visit Focus/Plan Next Note Type Treatment Note Next Visit Plan Review self-STM (rolling pin to ITB/quads). Consider soleus/Reece/ITB stretch for HEP; STM to ITB. POC: STM, hip strengthening, Ionto Plan of Care Dates Plan of Care Start Date 04/13/23 Plan of Care End Date 05/13/23 Electronically Signed by: Carlos Grant, PT 04/13/23 [id number] If you are in agreement with this Plan of Care, please return a signed and dated copy. I have reviewed this Plan of Care and certify that the skilled therapy services above are required to meet the patient?s needs. Physician Signature Date Printed Name and Credentials Clinical Instructor Signature Printed Name and Credentials
--- NOTE | 2023-04-18 11:23 | PT.OTN ---
Current Diagnoses Other bursitis of hip, left hip (04/18/23) Pain in left leg (04/18/23) Weakness (04/18/23) Physical Therapy Treatment Note PT-OP-A Visit Information Start: 02/07/23 17:28 Freq: Status: Active Protocol: Document 04/18/23 10:37 NBM (Rec: 04/18/23 11:20 NBM [id number]) Out-Patient Physical Therapy Visit Information Visit Information Visit Type Treatment Note Visit Start Time 10:35 Visit Stop Time 11:16 Total Visit Minutes 41 Visit Number 13 Number of SERVICE DESK DIRECTOR Visits 1 PT-OP-B Current Condition Start: 02/07/23 17:28 Freq: Status: Active Protocol: Document 02/07/23 14:45 DCW (Rec: 02/07/23 17:40 DCW [id number]) Current Condition History of Current Condition Onset Date ~9 month history Current Complaints left hip pain limiting usual outdoor activities History of Current Condition Pt is a very active 72 year old male presenting with a nine month history of left hip pain. Pt reports he typically hikes [place] 3-4 times a week, but since last May, has been experiencing left lateral hip pain that worses when he hikes. Finally got so bad in November that he stopped hiking, feels like it has improved some since then, but still bothers him intermittently, resulting in frequent limping. Reports he established care with a new PCP last week, and she thinks it is bursitis. Pt notes that when she was poking around on his lateral hip, he remembered that he slipped on ice and fell directly on his lateral hip last July, right where he is having his pain, but does admit that the pain had been bothering him prior to the fall. Increased stiffness and difficulty moving his leg in the morning, has tried icing it but afterward could hardly walk. Treatment Goals Patient/Caregiver Goals Return to hiking 3-4x/week PT-OP-C Subjective Start: 02/07/23 17:28 Freq: Status: Active Protocol: Document 04/18/23 10:37 NBM (Rec: 04/18/23 11:20 NBM [id number]) OP-PT Subjective Patient Comments Patient Comments Reece reports he's continuing to progress but limps when he first gets up. He did a 3-mi walk with hills, and he hiked up [place] again on 04/15 and took the steeper way down carefully - It started off w/ pain that was gone by the end. He hasn't been using the trekking poles lately because they seem to get in the way. More residual L knee pain from pruning on a hill. PT-OP-F Manual Assessment Start: 02/07/23 17:28 Freq: Status: Active Protocol: Document 04/13/23 10:19 DCW (Rec: 04/13/23 10:25 DCW [id number]) Manual Assessments Soft Tissue Assessment Soft Tissue Mobility Assessment General soreness along ITB with palpation, nothing too bad. PT-OP-G Mobility & Gait Start: 02/07/23 17:28 Freq: Status: Active Protocol: Document 04/13/23 10:19 DCW (Rec: 04/13/23 10:25 DCW [id number]) OP Gait Assessment Gait Gait Assistance Required: Independent Assistive Devices Assistive Device None Gait Deviations General Gait Pattern Antalgic,Decreased Stride Length,Lateral Trunk Lean Comments Gait Comments Pt ambulates immediate with moderate left antalgic gait pattern, however improves immensely after walking ~one minute as he loosens up. PT-OP-L Special Tests Start: 02/07/23 17:28 Freq: Status: Active Protocol: Document 04/13/23 10:19 DCW (Rec: 04/13/23 10:25 DCW [id number]) Special Tests Hip Special Tests Hip Distraction Test Results Vague feeling of improved pain Samantha's Test Test Results Negative Reece Test Results Negative Straight Leg Raise Test Results Negative Scour Test Test Results Negative Piriformis Test Results Negative YANELIS Test Results Negative PT-OP-M Strength Start: 02/07/23 17:28 Freq: Status: Active Protocol: Document 04/13/23 10:19 DCW (Rec: 04/13/23 10:25 DCW [id number]) Hip Strength Hip Manual Muscle Testing Right Flexion (L2) 4+ Good+ Abduction 4+ Good+ Adduction 4+ Good+ External Rotation 4+ Good+ Internal Rotation 4+ Good+ Left Flexion (L2) 4+ Good+ Abduction 4+ Good+ Adduction 4+ Good+ External Rotation 4+ Good+ Internal Rotation 4+ Good+ PT-OP-Q Treatments Start: 02/07/23 17:40 Freq: Status: Active Protocol: Document 04/18/23 10:37 NBM (Rec: 04/18/23 11:20 [facility] [id number]) Gym Equipment Shuttle Recovery Unilateral Squats Details B, vc for RLE alignment Resistance R 62# (two new), L 62>50# Reps/Time x20 ea LLE decreased d/t knee pain Bilateral Squats Details blue/white ball Resistance 112# (Four new) Shuttle Recovery Platform Stable,Unstable Reps/Time x15 ea L knee discomfort reported unstable Therapeutic Exercises Standing Exercises TKE Standing Exercise Name terminal knee extension Side bilateral Resistance Lev 6Tb Reps/Minutes x10, 10x 5SH Comments L knee pain resolves after. Hip Extension Standing Exercise Name Hip Extension Side bilateral Resistance Lv 4 T-band Equipment Used mirror Reps/Minutes x15, w/ tactile cue between feet to reduce hip adduction w / ext Comments pt self-corrects once block removed from between feet. Hip Abduction Standing Exercise Name Hip Abduction Side bilateral Resistance Lv 4 T-band Reps/Minutes x10 ea Comments vc for toes fwd w/ fatigue PT-OP-R Modalities Start: 04/18/23 11:21 Freq: Status: Active Protocol: Document 04/18/23 10:37 NB (Rec: 04/18/23 11:22 [facility] [id number]) Hot Pack/Cold Pack Treatment Cold Pack Location L knee Patient Position Hooklying Treatment Duration (minutes) 15 Patient Tolerance Good PT-OP-T Assessment and Plan Start: 02/07/23 17:28 Freq: Status: Active Protocol: Document 04/18/23 10:37 NB (Rec: 04/18/23 11:20 [facility] [id number]) Physical Therapy Assessment Goals Three Impairment Left hip weakness Half-Way Goal (LTG) Pt to demonstrate MMT testing of left hip flexion and abduction to improve to at least 4+/5 in order to improve pt ability to ambulate without an antalgic gait pattern. LTG Duration Met Two Impairment Pt unable to participate in his hobby of hiking due to hip pain Math Professor Goal (LTG) Pt to demonstrate ability to hike [place] at least 1x/ week without increased hip pain in order to return to preferred outdoor exercise activities. 03/11/23: Pt will try [place] this week and report back . 03/15/23: Pt did 3.5 mi trail around base of [employer] inclines/declines w/ topical diclofenac to L knee - occ twinge in ant L hip, L leg feeling heavier by end - L knee discomfort resolved completely w/ icing/elevating immediately. 04/11/23: Pt hiked [employer] w / pain initial 25-20 min ~1 mi which resolved. He states his body felt good with uphill effort 04/18/23: Pt hiked [employer] again on 04/15 and took steeper path down. LTG Duration 05/10/23 One Impairment Pt does not have an appropriate home exercise program Short Term Goal (STG) Pt to be independent and compliant with an appropriate HEP 03/01/23: Hip abd/ext- pt has Lvl 3 Tb & HO. 03/11/23: Seated hip add/abd w/ Lvl 3 TB and bridge w/ ball squeeze - HO given. 03/15/23: Supine HS and piriformis (knee to opp shannon) added to HEP - HO given. STG Duration Met Assessment Summary Assessment Reece requires cues for excessive hip adduction w/ hip extension but self-corrects once tactile block is removed from between feet. He has increased L knee discomfort today and L squat on Shuttle Recovery is modified from 62# to 50# due to L knee pain. L knee pain resolves after L TKE ex. He is encouraged not to overdo activity and is reminded of option to ice knee for pain management and accepts ice to L knee end of treatment today. Physical Therapy Plan Frequency and Duration Frequency of Treatment 2x/Week Plan of Care Start Date 04/13/23 Plan of Care End Date 05/13/23 Therapeutic Interventions Therapeutic Interventions Gait Training,Home Exercise Program,Joint Mobilizations, Manual Therapy,Neuromuscular Re-education,Patient/Caregiver Education,Self-Care/Home Management,Soft Tissue Mobilization,Therapeutic Activities,Therapeutic Exercises Modalities Cold Pack/Ice Massage,Electric Stimulation,Hot Packs, Iontophoresis,Ultrasound Other Therapeutic Interventions Iontophoresis /c Dexamethasone , 10 mg/mL Next Visit Focus/Plan Next Note Type Treatment Note Next Visit Plan Review self-STM (rolling pin to ITB/quads). Consider soleus/Reece/ITB stretch for HEP; STM to ITB. POC: STM, hip strengthening, Ionto
--- NOTE | 2023-04-20 11:03 | PT.OTN ---
Current Diagnoses Other bursitis of hip, left hip (04/20/23) Pain in left leg (04/20/23) Weakness (04/20/23) Physical Therapy Treatment Note PT-OP-A Visit Information Start: 02/07/23 17:28 Freq: Status: Active Protocol: Document 04/20/23 10:17 DCW (Rec: 04/20/23 11:03 DCW [id number]) Out-Patient Physical Therapy Visit Information Visit Information Visit Type Treatment Note Visit Start Time 10:17 Visit Stop Time 11:00 Total Visit Minutes 43 Visit Number 1410 Number of [employer] NURSE Visits 0 Evaluation Information Evaluation Date 02/07/23 PT-OP-B Current Condition Start: 02/07/23 17:28 Freq: Status: Active Protocol: Document 02/07/23 14:45 DCW (Rec: 02/07/23 17:40 DCW [id number]) Current Condition History of Current Condition Onset Date ~9 month history Current Complaints left hip pain limiting usual outdoor activities History of Current Condition Pt is a very active 72 year old male presenting with a nine month history of left hip pain. Pt reports he typically hikes [place] 3-4 times a week, but since last May, has been experiencing left lateral hip pain that worses when he hikes. Finally got so bad in November that he stopped hiking, feels like it has improved some since then, but still bothers him intermittently, resulting in frequent limping. Reports he established care with a new PCP last week, and she thinks it is bursitis. Pt notes that when she was poking around on his lateral hip, he remembered that he slipped on ice and fell directly on his lateral hip last July, right where he is having his pain, but does admit that the pain had been bothering him prior to the fall. Increased stiffness and difficulty moving his leg in the morning, has tried icing it but afterward could hardly walk. Treatment Goals Patient/Caregiver Goals Return to hiking 3-4x/week PT-OP-C Subjective Start: 02/07/23 17:28 Freq: Status: Active Protocol: Document 04/20/23 10:17 DCW (Rec: 04/20/23 11:03 DCW [id number]) OP-PT Subjective Patient Comments Patient Comments Pt reports his left leg is still stiff after spending some time driving, but was much better this morning when first getting. PT-OP-F Manual Assessment Start: 02/07/23 17:28 Freq: Status: Active Protocol: Document 04/13/23 10:19 DCW (Rec: 04/13/23 10:25 DCW [id number]) Manual Assessments Soft Tissue Assessment Soft Tissue Mobility Assessment General soreness along ITB with palpation, nothing too bad. PT-OP-G Mobility & Gait Start: 02/07/23 17:28 Freq: Status: Active Protocol: Document 04/13/23 10:19 DCW (Rec: 04/13/23 10:25 DCW [id number]) OP Gait Assessment Gait Gait Assistance Required: Independent Assistive Devices Assistive Device None Gait Deviations General Gait Pattern Antalgic,Decreased Stride Length,Lateral Trunk Lean Comments Gait Comments Pt ambulates immediate with moderate left antalgic gait pattern, however improves immensely after walking ~one minute as he loosens up. PT-OP-L Special Tests Start: 02/07/23 17:28 Freq: Status: Active Protocol: Document 04/13/23 10:19 DCW (Rec: 04/13/23 10:25 DCW [id number]) Special Tests Hip Special Tests Hip Distraction Test Results Vague feeling of improved pain Samantha's Test Test Results Negative Reece Test Results Negative Straight Leg Raise Test Results Negative Scour Test Test Results Negative Piriformis Test Results Negative YANELIS Test Results Negative PT-OP-M Strength Start: 02/07/23 17:28 Freq: Status: Active Protocol: Document 04/13/23 10:19 DCW (Rec: 04/13/23 10:25 DCW [id number]) Hip Strength Hip Manual Muscle Testing Right Flexion (L2) 4+ Good+ Abduction 4+ Good+ Adduction 4+ Good+ External Rotation 4+ Good+ Internal Rotation 4+ Good+ Left Flexion (L2) 4+ Good+ Abduction 4+ Good+ Adduction 4+ Good+ External Rotation 4+ Good+ Internal Rotation 4+ Good+ PT-OP-Q Treatments Start: 02/07/23 17:40 Freq: Status: Active Protocol: Document 04/20/23 10:17 DCW (Rec: 04/20/23 11:03 DCW [id number]) Gym Equipment Cable Column (Body Solid) Hip Adduction Resistance 40# Hip Abduction Resistance 30# Shuttle Recovery Unilateral Squats Details B, vc for RLE alignment Resistance R 62# (two new), L 50# (two old) Reps/Time x15 Bilateral Squats Details blue/white ball Resistance 112# (Three new) Shuttle Recovery Platform Stable Reps/Time x20 Therapeutic Exercises Supine Exercises Hamstring Stretch Supine Exercise Name HS stretch Side bilateral Other Exercises Step-ups Other Exercise Name Step-ups, step-downs Side bilateral Equipment Used 6 step Manual Therapy Treatment Soft Tissue Mobilization L hip Body Location piriformis, TFL, ITB, flexor Mobilization Type Cross-Friction,Rolling, Strumming,Sustained Pressure Intensity/Depth Moderate Comments Sidelying, Supine Manual Traction Lower Extremity Details L LE Long-axis traction /c strap Body Position Supine PT-OP-R Modalities Start: 04/18/23 11:21 Freq: Status: Active Protocol: Document 04/18/23 10:37 NBM (Rec: 04/18/23 11:22 NBM [id number]) Hot Pack/Cold Pack Treatment Cold Pack Location L knee Patient Position Hooklying Treatment Duration (minutes) 15 Patient Tolerance Good PT-OP-T Assessment and Plan Start: 02/07/23 17:28 Freq: Status: Active Protocol: Document 04/20/23 10:17 DCW (Rec: 04/20/23 11:03 DCW [id number]) Physical Therapy Assessment Impairments Impairments Activity Tolerance,Functional Activities,Functional Mobility ,Gait,Pain,ROM,Soft Tissue Mobility,Strength Goals Three Impairment Left hip weakness Carbon Lamp Cleaner Goal (LTG) Pt to demonstrate MMT testing of left hip flexion and abduction to improve to at least 4+/5 in order to improve pt ability to ambulate without an antalgic gait pattern. LTG Duration Met Two Impairment Pt unable to participate in his hobby of hiking due to hip pain Carbon Lamp Cleaner Goal (LTG) Pt to demonstrate ability to hike [place] at least 1x/ week without increased hip pain in order to return to preferred outdoor exercise activities. 03/11/23: Pt will try [place] this week and report back . 03/15/23: Pt did 3.5 mi trail around [place] inclines/declines w/ topical diclofenac to L knee - occ twinge in ant L hip, L leg feeling heavier by end - L knee discomfort resolved completely w/ icing/elevating immediately. 04/11/23: Pt hiked [place] w / pain initial 25-20 min ~1 mi which resolved. He states his body felt good with uphill effort 04/18/23: Pt hiked [place] again on 04/15 and took steeper path down. LTG Duration 05/10/23 One Impairment Pt does not have an appropriate home exercise program Short Term Goal (STG) Pt to be independent and compliant with an appropriate HEP 03/01/23: Hip abd/ext- pt has Lvl 3 Tb & HO. 03/11/23: Seated hip add/abd w/ Lvl 3 TB and bridge w/ ball squeeze - HO given. 03/15/23: Supine HS and piriformis (knee to opp shannon) added to HEP - HO given. STG Duration Met Assessment Summary Assessment Pt showing good progress with strength and tolerance to activity, still having some antalgic gait on left leg, has been very compliant with HEP so far. Likely transition to independent HEP over the next 1-2 weeks. Physical Therapy Plan Frequency and Duration Frequency of Treatment 2x/Week Plan of Care Start Date 04/13/23 Plan of Care End Date 05/13/23 Therapeutic Interventions Therapeutic Interventions Gait Training,Home Exercise Program,Joint Mobilizations, Manual Therapy,Neuromuscular Re-education,Patient/Caregiver Education,Self-Care/Home Management,Soft Tissue Mobilization,Therapeutic Activities,Therapeutic Exercises Modalities Cold Pack/Ice Massage,Electric Stimulation,Hot Packs, Iontophoresis,Ultrasound Other Therapeutic Interventions Iontophoresis /c Dexamethasone , 10 mg/mL Next Visit Focus/Plan Next Note Type Treatment Note Next Visit Plan Review self-STM (rolling pin to ITB/quads). Consider soleus/Reece/ITB stretch for HEP; STM to ITB. POC: STM, hip strengthening, Ionto
--- NOTE | 2023-04-25 14:36 | PT.OTN ---
Current Diagnoses Other bursitis of hip, left hip (04/25/23) Pain in left leg (04/25/23) Weakness (04/25/23) Physical Therapy Treatment Note PT-OP-A Visit Information Start: 02/07/23 17:28 Freq: Status: Active Protocol: Document 04/25/23 10:24 NBM (Rec: 04/25/23 11:33 NBM [id number]) Out-Patient Physical Therapy Visit Information Visit Information Visit Type Treatment Note Visit Start Time 10:30 Visit Stop Time 11:13 Total Visit Minutes 43 Visit Number 15 Number of DATA CLERK Visits 1 PT-OP-B Current Condition Start: 02/07/23 17:28 Freq: Status: Active Protocol: Document 02/07/23 14:45 DCW (Rec: 02/07/23 17:40 DCW [id number]) Current Condition History of Current Condition Onset Date ~9 month history Current Complaints left hip pain limiting usual outdoor activities History of Current Condition Pt is a very active 72 year old male presenting with a nine month history of left hip pain. Pt reports he typically hikes [place] 3-4 times a week, but since last May, has been experiencing left lateral hip pain that worses when he hikes. Finally got so bad in November that he stopped hiking, feels like it has improved some since then, but still bothers him intermittently, resulting in frequent limping. Reports he established care with a new PCP last week, and she thinks it is bursitis. Pt notes that when she was poking around on his lateral hip, he remembered that he slipped on ice and fell directly on his lateral hip last July, right where he is having his pain, but does admit that the pain had been bothering him prior to the fall. Increased stiffness and difficulty moving his leg in the morning, has tried icing it but afterward could hardly walk. Treatment Goals Patient/Caregiver Goals Return to hiking 3-4x/week PT-OP-C Subjective Start: 02/07/23 17:28 Freq: Status: Active Protocol: Document 04/25/23 10:24 NBM (Rec: 04/25/23 11:33 NBM [id number]) OP-PT Subjective Patient Comments Patient Comments Reece reports he hiked [employer] a few days ago showing off and had his fastest personal time, but did have intense pain two days following until he went for a walk Tuesday afternoon. He did not use trekking poles and admits there were times with hills he wish he had them. This morning he awoke without pain. I just need to learn to moderate. Clamshells and ball squeeze are his favorite ex's. PT-OP-F Manual Assessment Start: 02/07/23 17:28 Freq: Status: Active Protocol: Document 04/13/23 10:19 DCW (Rec: 04/13/23 10:25 DCW [id number]) Manual Assessments Soft Tissue Assessment Soft Tissue Mobility Assessment General soreness along ITB with palpation, nothing too bad. PT-OP-G Mobility & Gait Start: 02/07/23 17:28 Freq: Status: Active Protocol: Document 04/13/23 10:19 DCW (Rec: 04/13/23 10:25 DCW [id number]) OP Gait Assessment Gait Gait Assistance Required: Independent Assistive Devices Assistive Device None Gait Deviations General Gait Pattern Antalgic,Decreased Stride Length,Lateral Trunk Lean Comments Gait Comments Pt ambulates immediate with moderate left antalgic gait pattern, however improves immensely after walking ~one minute as he loosens up. PT-OP-L Special Tests Start: 02/07/23 17:28 Freq: Status: Active Protocol: Document 04/13/23 10:19 DCW (Rec: 04/13/23 10:25 DCW [id number]) Special Tests Hip Special Tests Hip Distraction Test Results Vague feeling of improved pain Samantha's Test Test Results Negative Reece Test Results Negative Straight Leg Raise Test Results Negative Scour Test Test Results Negative Piriformis Test Results Negative YANELIS Test Results Negative PT-OP-M Strength Start: 02/07/23 17:28 Freq: Status: Active Protocol: Document 04/13/23 10:19 DCW (Rec: 04/13/23 10:25 DCW [id number]) Hip Strength Hip Manual Muscle Testing Right Flexion (L2) 4+ Good+ Abduction 4+ Good+ Adduction 4+ Good+ External Rotation 4+ Good+ Internal Rotation 4+ Good+ Left Flexion (L2) 4+ Good+ Abduction 4+ Good+ Adduction 4+ Good+ External Rotation 4+ Good+ Internal Rotation 4+ Good+ PT-OP-Q Treatments Start: 07/10/23 17:40 Freq: Status: Active Protocol: Document 04/25/23 10:24 NBM (Rec: 04/25/23 11:33 [facility] [id number]) Gym Equipment Cable Column (Body Solid) Hip Adduction Resistance 30#>40# Reps/Time cues for breath Hip Abduction Details occ touching of weights Resistance 30# Shuttle Recovery Unilateral Squats Details B, vc for RLE alignment Resistance R 50#>62# (two new), L 50# ( two new) (62# attempted) Reps/Time x15 Bilateral Squats Details blue/white ball Resistance 112# (Four new) Shuttle Recovery Platform Stable Reps/Time x20 Therapeutic Exercises Standing Exercises calf stretch Standing Exercise Name 1. heels out, neutral, toes in 2. DF/PF Side bilateral Equipment Used AILEEN Reps/Minutes 1. 30 hold ea 2. x20 ea Comments pt struggles to perform toes in fully d/t tightness Self-Care/Home Management Treatment Education Patient Education Body Mechanics,Home Exercise Program,Pain Management Other Education Discussion w/ pt re: their pattern of overactivity followed by 1-2 days increased pain. Encouraged pt to moderate activity to remain functional the following day; practice slower pacing; consider trekking poles w/ hills. I/s pt in self-STM w/ rolling pin to L calf, quads, ITB and adductors w/ postitive feedback response. PT-OP-R Modalities Start: 04/18/23 11:21 Freq: Status: Active Protocol: Document 04/18/23 10:37 NBM (Rec: 04/18/23 11:22 [facility] [id number]) Hot Pack/Cold Pack Treatment Cold Pack Location L knee Patient Position Hooklying Treatment Duration (minutes) 15 Patient Tolerance Good PT-OP-T Assessment and Plan Start: 02/07/23 17:28 Freq: Status: Active Protocol: Document 04/25/23 10:24 NBM (Rec: 04/25/23 11:33 [facility] [id number]) Physical Therapy Assessment Goals Three Impairment Left hip weakness Halfway Goal (LTG) Pt to demonstrate MMT testing of left hip flexion and abduction to improve to at least 4+/5 in order to improve pt ability to ambulate without an antalgic gait pattern. LTG Duration Met Two Impairment Pt unable to participate in his hobby of hiking due to hip pain Halfway Goal (LTG) Pt to demonstrate ability to hike [place] at least 1x/ week without increased hip pain in order to return to preferred outdoor exercise activities. 03/11/23: Pt will try [employer] this week and report back . 03/15/23: Pt did 3.5 mi trail around base of [place] inclines/declines w/ topical diclofenac to L knee - occ twinge in ant L hip, L leg feeling heavier by end - L knee discomfort resolved completely w/ icing/elevating immediately. 04/11/23: Pt hiked [employer] w / pain initial 25-20 min ~1 mi which resolved. He states his body felt good with uphill effort 04/18/23: Pt hiked [employer] again on 04/15 and took steeper path down. 04/25/23: 04/22 Pt hiked [place] showing off and had fastest personal time, but intense pain two days following until went for a walk Tuesday afternoon. LTG Duration 05/10/23 One Impairment Pt does not have an appropriate home exercise program Short Term Goal (STG) Pt to be independent and compliant with an appropriate HEP 03/01/23: Hip abd/ext- pt has Lvl 3 Tb & HO. 03/11/23: Seated hip add/abd w/ Lvl 3 TB and bridge w/ ball squeeze - HO given. 03/15/23: Supine HS and piriformis (knee to opp shannon) added to HEP - HO given. 04/25/23: I/s pt in self-STM w/ rolling pin to L ITB, quads, adductors and calf. STG Duration Met Assessment Summary Assessment Assess next visit for d/c. Reece shows improved self- awareness of lower extremity alignment and pain-free range w/ exercises this session. He awakes this morning without pain for the first time in several weeks. Discussion w/ pt re: their pattern of hiking when feeling well followed by 1-2 days of pain inhibiting their activity, suggesting overactivity. Encouraged pt to moderate activity so that he remains functional the following day and to practice slower pacing and consider use of trekking poles again, particularly w/ hills. Instructed pt in self-STM w/ rolling pin to L calf, quads, ITB and adductors with postitive feedback response. Physical Therapy Plan Frequency and Duration Frequency of Treatment 2x/Week Plan of Care Start Date 04/13/23 Plan of Care End Date 05/13/23 Therapeutic Interventions Therapeutic Interventions Gait Training,Home Exercise Program,Joint Mobilizations, Manual Therapy,Neuromuscular Re-education,Patient/Caregiver Education,Self-Care/Home Management,Soft Tissue Mobilization,Therapeutic Activities,Therapeutic Exercises Modalities Cold Pack/Ice Massage,Electric Stimulation,Hot Packs, Iontophoresis,Ultrasound Other Therapeutic Interventions Iontophoresis /c Dexamethasone , 10 mg/mL Next Visit Focus/Plan Next Note Type Treatment Note Next Visit Plan Last visit - assess for d/c. Consider soleus/Reece/ITB stretch for HEP; STM to ITB. POC: STM, hip strengthening, Ionto
--- NOTE | 2023-04-27 11:02 | PT.OTN ---
Current Diagnoses Other bursitis of hip, left hip (04/27/23) Pain in left leg (04/27/23) Weakness (04/27/23) Physical Therapy Treatment Note PT-OP-A Visit Information Start: 02/07/23 17:28 Freq: Status: Active Protocol: Document 04/27/23 10:17 DCW (Rec: 04/27/23 11:02 DCW [id number]) Out-Patient Physical Therapy Visit Information Visit Information Visit Type Discharge Summary Visit Start Time 10:17 Visit Stop Time 11:00 Total Visit Minutes 43 Visit Number 16 Number of ORAL COMMUNICATION INSTRUCTOR Visits 0 Evaluation Information Evaluation Date 02/07/23 PT-OP-B Current Condition Start: 02/07/23 17:28 Freq: Status: Active Protocol: Document 02/07/23 14:45 DCW (Rec: 02/07/23 17:40 DCW [id number]) Current Condition History of Current Condition Onset Date ~9 month history Current Complaints left hip pain limiting usual outdoor activities History of Current Condition Pt is a very active 72 year old male presenting with a nine month history of left hip pain. Pt reports he typically hikes [place] 3-4 times a week, but since last May, has been experiencing left lateral hip pain that worses when he hikes. Finally got so bad in November that he stopped hiking, feels like it has improved some since then, but still bothers him intermittently, resulting in frequent limping. Reports he established care with a new PCP last week, and she thinks it is bursitis. Pt notes that when she was poking around on his lateral hip, he remembered that he slipped on ice and fell directly on his lateral hip last July, right where he is having his pain, but does admit that the pain had been bothering him prior to the fall. Increased stiffness and difficulty moving his leg in the morning, has tried icing it but afterward could hardly walk. Treatment Goals Patient/Caregiver Goals Return to hiking 3-4x/week PT-OP-C Subjective Start: 02/07/23 17:28 Freq: Status: Active Protocol: Document 04/27/23 10:17 DCW (Rec: 04/27/23 11:02 DCW [id number]) OP-PT Subjective Patient Comments Patient Comments Better all the time, but I do think I overdid it this weekend. PT-OP-F Manual Assessment Start: 02/07/23 17:28 Freq: Status: Active Protocol: Document 04/13/23 10:19 DCW (Rec: 04/13/23 10:25 DCW [id number]) Manual Assessments Soft Tissue Assessment Soft Tissue Mobility Assessment General soreness along ITB with palpation, nothing too bad. PT-OP-G Mobility & Gait Start: 02/07/23 17:28 Freq: Status: Active Protocol: Document 04/13/23 10:19 DCW (Rec: 04/13/23 10:25 DCW [id number]) OP Gait Assessment Gait Gait Assistance Required: Independent Assistive Devices Assistive Device None Gait Deviations General Gait Pattern Antalgic,Decreased Stride Length,Lateral Trunk Lean Comments Gait Comments Pt ambulates immediate with moderate left antalgic gait pattern, however improves immensely after walking ~one minute as he loosens up. PT-OP-L Special Tests Start: 02/07/23 17:28 Freq: Status: Active Protocol: Document 04/13/23 10:19 DCW (Rec: 04/13/23 10:25 DCW [id number]) Special Tests Hip Special Tests Hip Distraction Test Results Vague feeling of improved pain Samantha's Test Test Results Negative Reece Test Results Negative Straight Leg Raise Test Results Negative Scour Test Test Results Negative Piriformis Test Results Negative YANELIS Test Results Negative PT-OP-M Strength Start: 02/07/23 17:28 Freq: Status: Active Protocol: Document 04/13/23 10:19 DCW (Rec: 04/13/23 10:25 DCW [id number]) Hip Strength Hip Manual Muscle Testing Right Flexion (L2) 4+ Good+ Abduction 4+ Good+ Adduction 4+ Good+ External Rotation 4+ Good+ Internal Rotation 4+ Good+ Left Flexion (L2) 4+ Good+ Abduction 4+ Good+ Adduction 4+ Good+ External Rotation 4+ Good+ Internal Rotation 4+ Good+ PT-OP-Q Treatments Start: 02/07/23 17:40 Freq: Status: Active Protocol: Document 04/27/23 10:17 DCW (Rec: 04/27/23 11:02 DCW [id number]) Gym Equipment Cable Column (Body Solid) Hip Adduction Resistance 40# Hip Abduction Resistance 30# Shuttle Recovery Unilateral Squats Details B, vc for RLE alignment Resistance R 62# (two new), L 50# (two new) Reps/Time x15 Bilateral Squats Details blue/white ball Resistance 112# (Three new) Shuttle Recovery Platform Stable Reps/Time x20 Therapeutic Exercises Other Exercises Step-ups Other Exercise Name Step-ups, step-downs Side bilateral Equipment Used 6 step Resisted Ambulation Other Exercise Name Resisted side-stepping Resistance Green loop BOSU Lunge Other Exercise Name BOSU Lunge Side bilateral Equipment Used Blue BOSU Manual Therapy Treatment Soft Tissue Mobilization L hip Body Location piriformis, TFL, ITB, flexor Mobilization Type Cross-Friction,Rolling, Strumming,Sustained Pressure Intensity/Depth Moderate Comments Sidelying, Supine Manual Traction Lower Extremity Details L LE Long-axis traction /c strap Body Position Supine PT-OP-R Modalities Start: 04/18/23 11:21 Freq: Status: Active Protocol: Document 04/18/23 10:37 NBM (Rec: 04/18/23 11:22 NBM [id number]) Hot Pack/Cold Pack Treatment Cold Pack Location L knee Patient Position Hooklying Treatment Duration (minutes) 15 Patient Tolerance Good PT-OP-T Assessment and Plan Start: 02/07/23 17:28 Freq: Status: Active Protocol: Document 04/27/23 10:17 DCW (Rec: 04/27/23 11:02 DCW [id number]) Physical Therapy Assessment Impairments Impairments Activity Tolerance,Functional Activities,Functional Mobility ,Gait,Pain,ROM,Soft Tissue Mobility,Strength Goals Three Impairment Left hip weakness Shipwright Apprentice Goal (LTG) Pt to demonstrate MMT testing of left hip flexion and abduction to improve to at least 4+/5 in order to improve pt ability to ambulate without an antalgic gait pattern. LTG Duration Met Two Impairment Pt unable to participate in his hobby of hiking due to hip pain Shipwright Apprentice Goal (LTG) Pt to demonstrate ability to hike [place] at least 1x/ week without increased hip pain in order to return to preferred outdoor exercise activities. 03/11/23: Pt will try [employer] this week and report back . 03/15/23: Pt did 3.5 [address] trail around base of [employer] inclines/declines w/ topical diclofenac to L knee - occ twinge in ant L hip, L leg feeling heavier by end - L knee discomfort resolved completely w/ icing/elevating immediately. 04/11/23: Pt hiked [place] w / pain initial 25-20 min ~1 mi which resolved. He states his body felt good with uphill effort 04/18/23: Pt hiked [place] again on 04/15 and took steeper path down. LTG Duration 05/10/23 One Impairment Pt does not have an appropriate home exercise program Short Term Goal (STG) Pt to be independent and compliant with an appropriate HEP 03/01/23: Hip abd/ext- pt has Lvl 3 Tb & HO. 03/11/23: Seated hip add/abd w/ Lvl 3 TB and bridge w/ ball squeeze - HO given. 03/15/23: Supine HS and piriformis (knee to opp shannon) added to HEP - HO given. STG Duration Met Progress Towards Goals Progress Towards Goals Progressing Toward Goals Assessment Summary Assessment Pt doing very well overall, has returned to hiking more regularly. Does still have some increased pain, but goes away pretty quickly. Pt feels comfortable with HEP, appropriate for discharge at this time. Physical Therapy Plan Frequency and Duration Frequency of Treatment 2x/Week Plan of Care Start Date 04/13/23 Plan of Care End Date 05/13/23 Therapeutic Interventions Therapeutic Interventions Gait Training,Home Exercise Program,Joint Mobilizations, Manual Therapy,Neuromuscular Re-education,Patient/Caregiver Education,Self-Care/Home Management,Soft Tissue Mobilization,Therapeutic Activities,Therapeutic Exercises Modalities Cold Pack/Ice Massage,Electric Stimulation,Hot Packs, Iontophoresis,Ultrasound Other Therapeutic Interventions Iontophoresis /c Dexamethasone , 10 mg/mL Discharge Physical Therapy Discharge Reasons Goals Met Next Visit Focus/Plan Next Note Type Discharge Summary
== END 2023-05-16 14:53 ==
LOC: PHYS 10:15
PROVIDERS: Family Provider Student in an Organized Health Care Education/Training Program; PCP Student in an Organized Health Care Education/Training Program; Referring Provider Nurse Practitioner Family; Visit Provider Nurse Practitioner Family
DX: M79.605 Pain in left leg (principal); M70.72 Other bursitis of hip, left hip; R53.1 Weakness
CPT/HCPCS: 97110; 97116; 97140; 97161; 97535

== ENCOUNTER → 2023-06-21 15:11 | Outpatient (CLI) | payer MEDICARE, OTHER, SELFPAY ==
--- NOTE | 2023-06-21 | DI.US.S_ITS ---
PROCEDURE: US ABD AORTA ANEURYSM SCREEN INDICATIONS: AAA SCREENING TECHNIQUE: Real time scanning was performed of the aorta and iliac arteries, with image documentation. COMPARISON: None. FINDINGS: Aorta: Proximal aortic diameter measures 2.1 cm. Mid-aorta measures 1.8 cm. Distal aortic diameter is 1.4 cm. Iliac arteries: Right common iliac artery measures 1.3 cm. Left common iliac artery measures 1.2 cm. IMPRESSION: No abdominal aortic aneurysm or ectasia. Dictated by: Dhara Ramires M.D. on 06/21/2023 at 15:55 Approved by: Dhara Ramires M.D. on 06/21/2023 at 15:59
== END ==
PROVIDERS: Family Provider Student in an Organized Health Care Education/Training Program; PCP Student in an Organized Health Care Education/Training Program; Referring Provider Student in an Organized Health Care Education/Training Program; Visit Provider Student in an Organized Health Care Education/Training Program
DX: Z13.6 Encounter for screening for cardiovascular disorders (principal)
CPT/HCPCS: 76706

== ENCOUNTER → 2024-01-24 10:40 | Outpatient (CLI) | payer MEDICARE, OTHER, SELFPAY ==
--- NOTE | 2024-01-24 10:44 | DI.RAD.S_ITS ---
PROCEDURE: XR KNEE LT 3V INDICATIONS: KNEE PAIN TECHNIQUE: 3 views of the knee were acquired. COMPARISON: [facility], CR, XR KNEE LT 3V, 02/11/2023, 14:44. FINDINGS: Bones: No fractures or dislocations. No suspicious bony lesions. Tricompartmental joint space narrowing with associated osteophytosis. Soft tissues: Small joint effusion. No suspicious soft tissue calcifications. Chondrocalcinosis. IMPRESSION: Umrm-vy-iimedjsr tricompartmental osteoarthritis. Kellgren-Ole Grade 2. No significant progression since 2022. Chondrocalcinosis, which can be seen in the setting of CPPD, aging, and parathyroid disorders. Dictated by: Rush Walker M.D. on 01/24/2024 at 12:30 Approved by: Rush Walker M.D. on 01/24/2024 at 12:31
--- NOTE | 2024-01-24 10:44 | DI.RAD.S_ITS ---
PROCEDURE: XR HIP W PEL IF DONE LT 2V INDICATIONS: HIP PAIN TECHNIQUE: 2 views of the hip were acquired. COMPARISON: None. FINDINGS: Bones: No fractures or dislocations. No suspicious bony lesions. The visualized pelvic ring appears intact. Severe left hip joint space narrowing with osteophytosis, subchondral sclerosis and cystic change, and bony deformity. Soft tissues: No suspicious soft tissue calcifications or masses. IMPRESSION: Severe left hip osteoarthritis. Kellgren-Ole Grade 3-4. Dictated by: Rush Walker M.D. on 01/24/2024 at 12:30 Approved by: Rush Walker M.D. on 01/24/2024 at 12:30
== END ==
PROVIDERS: Family Provider Student in an Organized Health Care Education/Training Program; PCP Student in an Organized Health Care Education/Training Program; Referring Provider Student in an Organized Health Care Education/Training Program; Visit Provider Student in an Organized Health Care Education/Training Program
DX: M16.12 Unilateral primary osteoarthritis, left hip (principal); M17.12 Unilateral primary osteoarthritis, left knee; M11.262 Other chondrocalcinosis, left knee; M25.562 Pain in left knee; M25.552 Pain in left hip; G89.29 Other chronic pain
CPT/HCPCS: 73502; 73562

== ENCOUNTER → 2024-01-30 14:23 | Outpatient (CLI) | payer MEDICARE, OTHER, SELFPAY ==
--- NOTE | 2024-01-30 14:43 | EKG_ITS ---
[place] [address] [address] [place] [id number] Test Date: 2024-01-30 Pat Name: Reece Cardona Department: [facility] Room: Gender: Male X Ray Inspector: HARSHAL : 1950 Requested By: Order Number: [id number] Reading MD: Herve Kurtz Measurements Intervals [place] Rate: 71 P: 77 IA: 158 QRS: 2 QRSD: 94 T: 66 QT: 398 QTc: 432 Interpretive Statements Normal sinus rhythm Nonspecific ST abnormality Electronically Signed On 01-31-2024 18:26:04 PDT by Herve Kurtz
[2024-01-30 15:00] LABS: Add Manual Diff / Slide Review NO; Basophils Absolute Auto 100 /uL (0-100); Basophils Percent Auto 1.3 % (0-2); Eosinophils Absolute Auto 400 /uL (0-450); Eosinophils Percent Auto 5.2 % (2-4); Hematocrit 33.7 % (41-53); Hemoglobin 11.8 g/dL (13.5-17.5); Lymphocytes Absolute Auto 1600 /uL (1100-4500); Lymphocytes Percent Auto 22.2 % (25-40); Mean Corpuscular HGB Conc 34.9 % (30-36); Mean Corpuscular Hemoglobin 34.1 PG (26-34); Mean Corpuscular Volume 97.8 fL (80-100); Monocytes Absolute Auto 900 /uL (0-900); Monocytes Percent Auto 12.6 % (3-14); Neutrophils Absolute Auto 4200 /uL (1500-7000); Neutrophils Percent Auto 58.7 % (50-75); Platelet Count 307 X10^3/uL (150-400); Red Blood Cell Count 3.45 X10^6/uL (4.5-5.9); Red Cell Distribution Width 12.6 % (11.6-14.8); White Blood Cell Count 7.2 X10^3/uL (4.5-11.0)
[2024-01-30 15:06] LABS: Hemoglobin A1C% w Est Avg Glu 4.9 % (4.0-6.0)
[2024-01-30 15:15] LABS: Albumin 3.7 g/dL (3.5-5.0); BUN Creatinine Ratio 17.5 (6-22); Blood Urea Nitrogen 10 mg/dL (9-20); Calcium 8.7 mg/dL (8.4-10.2); Carbon Dioxide 26 mmol/L (22-32); Chloride 98 mmol/L (98-107); Estimated Glomerular Filt Rate > 60 mL/min (>60); Glucose 87 mg/dL (80-110); HEMOLYSIS < 15 (0-50); Potassium 4.4 mmol/L (3.4-5.1); Sodium 130 mmol/L (137-145)
[2024-01-30 15:22] LABS: Prealbumin 17.3 mg/dL (17.6-36.0)
[2024-02-01 15:05] LABS: Vitamin D 25 Hydroxy (D3) < 12.8 ng/mL (30.0-100.0)
== END ==
PROVIDERS: Family Provider Student in an Organized Health Care Education/Training Program; PCP Student in an Organized Health Care Education/Training Program; Referring Provider Orthopaedic Surgery Adult Reconstructive Orthopaedic Surgery; Visit Provider Orthopaedic Surgery Adult Reconstructive Orthopaedic Surgery
DX: Z01.812 Encounter for preprocedural laboratory examination (principal); Z01.818 Encounter for other preprocedural examination; R73.9 Hyperglycemia, unspecified; E55.9 Vitamin D deficiency, unspecified; R77.0 Abnormality of albumin
CPT/HCPCS: 36415; 80048; 82040; 82306; 83036; 84134; 85025; 93005

== ENCOUNTER → 2024-05-17 11:06 | Outpatient (CLI) | payer MEDICARE, OTHER, SELFPAY ==
[2024-05-17 12:19] LABS: Add Manual Diff / Slide Review NO; Basophils Absolute Auto 100 /uL (0-100); Basophils Percent Auto 1.4 % (0-2); Eosinophils Absolute Auto 600 /uL (0-450); Eosinophils Percent Auto 10.2 % (2-4); Hematocrit 32.2 % (41-53); Lymphocytes Absolute Auto 1200 /uL (1100-4500); Lymphocytes Percent Auto 21.3 % (25-40); Mean Corpuscular HGB Conc 34.1 % (30-36); Mean Corpuscular Hemoglobin 33.5 PG (26-34); Mean Corpuscular Volume 98.2 fL (80-100); Monocytes Absolute Auto 800 /uL (0-900); Monocytes Percent Auto 13.7 % (3-14); Neutrophils Absolute Auto 3000 /uL (1500-7000); Neutrophils Percent Auto 53.4 % (50-75); Platelet Count 334 X10^3/uL (150-400); Red Blood Cell Count 3.28 X10^6/uL (4.5-5.9); Red Cell Distribution Width 14.2 % (11.6-14.8); White Blood Cell Count 5.6 X10^3/uL (4.5-11.0)
[2024-05-17 12:24] LABS: Hemoglobin A1C% w Est Avg Glu 4.7 % (4.0-6.0)
[2024-05-17 12:48] LABS: Albumin 3.9 g/dL (3.5-5.0); BUN Creatinine Ratio 16.7 (6-22); Blood Urea Nitrogen 11 mg/dL (9-20); Calcium 9.1 mg/dL (8.4-10.2); Carbon Dioxide 26 mmol/L (22-32); Chloride 98 mmol/L (98-107); Estimated Glomerular Filt Rate > 60 mL/min (>60); Glucose 92 mg/dL (80-110); HEMOLYSIS < 15 (0-50); Potassium 4.4 mmol/L (3.4-5.1); Sodium 131 mmol/L (137-145)
[2024-05-17 12:55] LABS: Prealbumin 24.2 mg/dL (17.6-36.0)
[2024-05-17 14:55] LABS: Vitamin D 25 Hydroxy (D3) 28.4 ng/mL (30.0-100.0)
== END ==
LOC: LAB 11:08
PROVIDERS: Family Provider Student in an Organized Health Care Education/Training Program; PCP Student in an Organized Health Care Education/Training Program; Referring Provider Orthopaedic Surgery Adult Reconstructive Orthopaedic Surgery; Visit Provider Orthopaedic Surgery Adult Reconstructive Orthopaedic Surgery
DX: Z01.812 Encounter for preprocedural laboratory examination (principal); R77.0 Abnormality of albumin; R73.9 Hyperglycemia, unspecified; E55.9 Vitamin D deficiency, unspecified
CPT/HCPCS: 36415; 80048; 82040; 82306; 83036; 84134; 85025

== ENCOUNTER 2024-05-22 12:16 | Inpatient (IN) | payer MEDICARE, OTHER, SELFPAY ==
[2024-05-17 14:32] VITALS: BMI 23.3
[2024-05-22] VITALS (14 sets, daily range): BP systolic 92–134; BP diastolic 47–86; PULSE 54–94; RESP 12–18; TEMP 36.1–37.2; O2SAT 96–100; BMI 23.3
--- NOTE | 2024-05-22 | DI.RAD.S_ITS ---
PROCEDURE: XR HIP W PEL IF DONE LT 2V INDICATIONS: total left hip revision TECHNIQUE: Fluoroscopic guidance utilized for a left hip arthroplasty COMPARISON: None. FINDINGS: Fluoroscopic images submitted for a left hip arthroplasty. Please see operative note for further discussion. IMPRESSION: Fluoroscopic guidance. Dictated by: Rush Walker M.D. on 05/22/2024 at 17:40 Approved by: Rush Walker M.D. on 05/22/2024 at 17:40
--- NOTE | 2024-05-22 06:00 | DI.RAD.S_ITS ---
PROCEDURE: XR HIP W PEL IF DONE LT 2V INDICATIONS: osmel revision TECHNIQUE: AP pelvis with lateral view(s) of the left hip(s). COMPARISON: [facility], CR, XR PELVIS WITH LATERAL HIP LEFT, 05/17/2024, 9:45. [facility], CR, XR HIP W PEL IF DONE LT 2V, 05/22/2024, 16:32. FINDINGS: Bones: Expected appearance of revision total arthroplasty of the left hip. No evidence of hardware failure or loosening. No fractures or dislocations. Pelvic ring appears intact. No suspicious bony lesions. Soft tissues: The visualized bowel gas pattern is normal. No suspicious soft tissue calcifications. IMPRESSION: Expected appearance of revision total left hip arthroplasty. Dictated by: Dave Lomeli M.D. on 05/22/2024 at 17:43 Approved by: Dave Lomeli M.D. on 05/22/2024 at 17:44
[2024-05-22] MEDS: MELOXICAM 7.5 MG TABLET PO (13:08)
[2024-05-22] MEDS: ACETAMINOPHEN 325 MG TABLET 975 MG PO (13:08)
[2024-05-22] MEDS: LACTATED RINGERS 1,000 ML 42 ML IV (13:09)
--- NOTE | 2024-05-22 14:35 | P.HP_ITS ---
History of Present Illness History of Present Illness Date Patient Seen: 05/22/24 Time Patient Seen: 14:36 Chief complaint: Left TSA revision 05/22 Narrative: This 73-year-old male patient underwent a left total hip arthroplasty performed by myself recently. Intraoperatively he had a calcar fracture which was treated with cables ring. He was made weight-bearing as tolerated postoperatively. He returned for his 6 week follow up and was found to have significant stem subsidence with the collar falling into the fracture site. Interestingly he reported minimal pain and had been making significant functional improvements however given his significant shortening through the fracture site I recommended he returned to the operating room for revision of his femoral component to a diaphyseal engaging stem. He returns today for this procedure. [facility] Medical History (Updated 05/22/24 @ 14:38 by Parag Shannon MD) Hyponatremia Anemia Surgical History (Updated 05/21/24 @ 11:03 by Shantell Jernigan RN) History of total left hip arthroplasty (04/03/24) Social History household members: spouse Smoking Status: Former smoker Meds Home Medications and Allergies Home Medications Medication Instructions Recorded Confirmed Type diclofenac sodium 1 % topical gel 4 g topical QID #100 grams 02/11/23 05/21/24 Rx acetaminophen 500 mg tablet 500 mg PO TID 05/21/24 05/22/24 History (Tylenol Extra Strength) aspirin 81 mg tablet,delayed 81 mg PO BID 05/21/24 05/21/24 History release naproxen sodium 220 mg capsule 220 mg PO TID 05/21/24 05/21/24 History (Aleve) Allergies Allergy/AdvReac Type Severity Reaction Status Date / Time No Known Drug Allergies Allergy Verified 05/22/24 12:58 Review of Systems Review of Systems ROS: Yes All systems reviewed with the patient and are negative except as otherwise documented Exam Vital Signs (past 8 hours): - 05/22/24 13:00 Temperature 98.4 F Pulse Rate 54 L Respiratory Rate 16 Blood Pressure 134/69 Pulse Oximetry 100 Oxygen Delivery Method Room Air Oxygen Delivery Method Room Air Narrative Exam Narrative: Prior surgical incision well healed. Sensory motor function intact distally in the foot Const General: cooperative Orientation: alert and awake [facility] Head: normal to inspection Ears: hearing grossly normal bilaterally Eyes General: appearance normal, both eyes and all related structures Neck Neck: normal visual inspection Resp Effort & Inspection: normal respiratory effort and able to speak in complete sentences Cardio Pulses: other (peripheral pulses present) Skin Lesions: no lesions Rashes: no rashes Neuro General: patient alert, patient awake and moves all extremities Psych Appearance: grossly normal Assessment & Plan Assessment and plan (1) Loose total hip arthroplasty: Status: Acute Plan Plan to proceed to the operating room today for revision of his femoral component with a diaphyseal engaging stem. This will involve cerclage cables as well. I will plan for him to remain in the hospital overnight and mobilize with physical therapy in the morning tomorrow. Discussed the risks and benefits of the procedure with him in detail.
[2024-05-22] MEDS: CEFAZOLIN 2 GM/100 ML PREMIX 100 ML IV ×2 (14:38→21:38)
--- NOTE | 2024-05-22 15:15 | SUR.OPER ---
Patient supine on padded [place] table, arm's on padded arm board's at <90, both legs secured in padded traction boots and positioned per surgeon, padded post at patient's groin, pressure points checked and padded.
[2024-05-22] MEDS: TRANEXAMIC ACID 1,000 MG VIAL 2000 MG INJ ×2 (15:20→16:36)
[2024-05-22] MEDS: ROPIVACAINE/EPI/CLONIDINE/KET 50 ML SYRINGE INJ (15:42)
[2024-05-22] MEDS: VANCOMYCIN 1,000 MG VIAL 1000 MG TOP (16:26)
--- NOTE | 2024-05-22 16:49 | P.OP_ITS ---
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 * 36 mm +1.5 ceramic femoral head? * [place] chromium cerclage cable Procedure Summary: This 73-year-old male sustained a calcar fracture during his prior total hip arthroplasty in April. He had subsidence on radiographic follow up so I recommended conversion to a diaphyseal engaging stem. Intraoperatively today I found that the stem was loose and was easily extracted. It had subsided significantly in the fracture had redisplaced. Converted to a diaphyseal engaging stem and had calculated preoperatively that I would be able to achieve the same construct with slight lengthening with the use of a standard offset and a +1.5 head as he had had a standard offset and-2 had previously. Stability was appropriate on all trialed parameters Procedure in Detail: This patient was seen preoperatively and evaluated for counseled regarding my recommendation for revision of his femoral component.. With this understanding of the risks inherent to the procedure, the patient elected to move forward with operative management. Following preoperative optimization, the patient was scheduled for surgery. The patient was met in the preoperative holding area the day of the procedure and all questions were answered. The patient?s nares were swabbed with betadine in order to decolonize them from MRSA. Informed consent was signed and the left limb was marked with indelible ink.? The patient was brought back to the operating room where anesthesia was induced. The patient was transferred to the Crockett table and all bony prominences were padded. The operative site was prepped and draped in the usual sterile fashion. Prior to incision, tranexamic acid and cefazolin were administered. Operative templating images were displayed demonstrating the anticipated implant sizes and correct operative extremity. A timeout procedure was performed verifying the patient?s identity, medical comorbidities, allergies, relevant medications, anesthesia type and the surgical plan. All present were in agreement. The assistance of a physician facilities maintenance assistant was required for positioning, room setup, soft tissue retraction and wound closure. Without this assistance, the procedure would have been significantly more challenging and time consuming.?? I utilized the prior incision for a direct anterior approach. I dissected through old scar and identified the Heuter interval. I bluntly dissected along this plane and identified the site of the prior dissection. I placed a retractor over the greater trochanter as well as over the femoral neck and continued the dissection. I performed a capsulotomy roughly in line with the prior capsulotomy. I placed a retractor onto the anterior wall and completed the capsulotomy. Dissected scar from around the femoral head and then distracted through the traction table and disengaged the femoral head with a tamp and a mallet. I did note that there was significant bleeding from the scar so I utilized a [employer] electrocautery device for coagulation. I placed a Crockett hook and carefully lowered the leg into hyperextension and adduction with traction off and 90? of external rotation. I then placed retractors around the proximal femur and externally rotated through the traction table to 140?. I inspected the stem and found that it was grossly loose and manually removed it. I then used a sounding probe to ensure that I had appropriate femoral access and was able to pass this well down the femur. I then sequentially reamed at 10, 11, 12, 13, 14, 15, 16, 17 mm reamers on power. I had anticipated utilizing approximately a 16 mm stem based on the size of the stem that I had placed during the index procedure. I achieved good chatter with the 17 mm Reamer. I then placed trials in place. Initial trialing was performed with a size 17 Reamer, a standard offset neck and a +1.5 head. I initially manually externally rotated the hip and found no instability. I then locked the hip in 45 degrees of external rotation and dropped it to the floor with traction off which demonstrated no instability. An AP pelvis fluoroscopic image matching the preoperative standing radiograph with both lesser trochanters visible and both hips in 40 degrees of external rotation demonstrated appropriate leg length and offset. AP and lateral hip fluoroscopic images were obtained to evaluate the Reamer size which demonstrated good canal fill. The hip was dislocated and I returned to the broaching position. Based on my evaluation during initial trialing I planned to place these definitive implants. I returned to the broaching position and removed the neck trial and the Reamer.. The definitive stem was placed and the trunnion was cleaned and dried. I placed a ceramic head onto the trunnion and impacted it into place on the Welch taper.?? All retractors were removed and the hip was reduced. A dilute mixture of betadine and peroxide was used to bathe the soft tissues during final fluoroscopic assessment. Appropriate component positioning was confirmed on an AP pelvis radiograph with the operative and nonoperative legs in 40 degrees of external rotation, evaluating leg length and offset. Appropriate stem fill was evaluated on AP and lateral hip radiographs. No fractures were identified on these radiographs. There was no hip instability with maximum (120?) external rotation as well as a 45 degree drop test. The hip was copiously irrigated with pulse lavage. I placed vancomycin in the wound. The capsule was closed with absorbable interrupted suture. The TFL fascia was closed with barbed suture while carefully protecting the lateral femoral cutaneous nerve from entrapment. A mixture of Ropivacaine, Epinephrine, Clonidine and Toradol was infiltrated throughout the soft tissues. The skin was closed with 2-0 and 3-0 sutures. Surgical glue was applied and a soft dressing was placed.??The sponge, instrument and needle counts were reported as being correct at the end of the case.??No obvious complications occurred. The patient was transferred from the Crockett table back to a stretcher. The patient emerged from anesthesia without difficulty and was taken to the PACU in a stable condition.? Plan for aftercare: * Anterior hip precautions * Weightbearing as tolerated using a walker at all times * Cefadroxil 500 mg twice per day for 10 days for PJI prophylaxis * Aspirin 81 twice per day for DVT prophylaxis * Anticipate discharge home tomorrow * Multimodal pain regimen with no IV opioids ordered * Apply ice machine to operative hip. Ensure that sufficient ice is in the chamb er for the pad to remain cold * Follow up at [facility] with me in 2 weeks * Detailed postoperative instructions available at [email or web address]
[2024-05-22] MEDS: DOCUSATE 100 MG CAPSULE PO (21:34)
[2024-05-22] MEDS: NAPROXEN 250 MG TABLET PO (21:34)
[2024-05-22] MEDS: ASPIRIN EC 81 MG TABLET PO (21:34)
[2024-05-22] MEDS: ACETAMINOPHEN 325 MG TABLET 650 MG PO (21:34)
[2024-05-22] MEDS: LACTATED RINGERS 1,000 ML 100 ML IV (23:10)
[2024-05-23] MEDS: TRAMADOL 50 MG TABLET PO (01:53)
[2024-05-23 05:36] LABS: Hematocrit 23.5 % (41-53); Hemoglobin 7.9 g/dL (13.5-17.5)
--- NOTE | 2024-05-23 06:46 | P.DS_ITS ---
History of Present Illness History of Present Illness Date Patient Seen: 05/23/24 Time Patient Seen: 06:46 Chief complaint: Left TSA revision 05/22 Narrative: Early in the procedure I removed the cerclage cable to allow for stem removal. 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 * 36 mm +1.5 ceramic femoral head? 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 On the morning of POD# 1, he was feeling well and wanted to go home. He was eating and voiding without difficulty and his pain was well-controlled w/ oral medication. He had not yet been OOB or worked w/ PT, but he was very mobile prior to surgery. Exam Vital Signs (past 8 hours): - 05/22/24 23:44 Temperature 98.6 F Pulse Rate 63 Respiratory Rate 18 Blood Pressure 122/58 L Pulse Oximetry 98 Oxygen Flow Rate 0 Oxygen Delivery Method Room Air Oxygen Flow Rate 0 Narrative Exam Narrative: 5/5 strength in hip flexors, quadriceps, hamstrings, DF, PF, EHL on left. Sensation to light touch intact throughout LLE. Calf soft and compressible. ABIODUN functioning, CDI. His H/H is low d/t expected surgical blood loss, but he is asymptomatic and vital signs are stable. His BP is reading at 90s/40s and unit is alarming, but that is because he had his arm flexed at the elbow, preventing full cuff inflation. 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 Pt has pain meds and ASA 81mg at home, will send rxs for cefadroxil x 10 days and Ensure for nutrition supplementation. F/u in office in 2 weeks as scheduled. Discharge Plan Discharge Plan Patient Disposition: Home Discharge orders & Medications Prescriptions: New cefadroxil 500 mg capsule 500 mg PO BID Qty: 20 0RF Ensure Plus High Protein 0.08 gram-1.5 kcal/mL liquid 1 ea PO DAILY Qty: 237 3RF Continued diclofenac sodium 1 % gel 4 g topical QID Qty: 100 2RF Rx Instructions: Apply to knee up to 4 times a day as needed aspirin 81 mg tablet,delayed release (DR/EC) 81 mg PO BID acetaminophen [Tylenol Extra Strength] 500 mg Tablet 500 mg PO TID naproxen sodium [Aleve] 220 mg Capsule 220 mg PO TID Follow up/Referrals: Nisa Cobb PA-C [Primary Care Provider] - Parag Shannon MD [Physician] - 05/31/24 8:30 am (Follow up w/ Kalani Ying PA-C, at [address] office in [place].) Diet/Activity/Treatments Diet: Diet as Tolerated Activity: Weightbearing as tolerated, walker at all times. Cold/Heat Therapy: Ice to hip as needed for pain. Skin/Wound/Dressing Care Report to your healthcare provider any signs of infection, such as:: chills, fever, night sweats, unusual drainage and unusual redness Dressing: May shower. Leave dressing in place until follow up in office. Batteries will in 5-7 days, at which point you can cut off the battery pack and dispose of it. No bathing or otherwise soaking incision. Call the office if the dressing becomes saturated inside. Visit Report/Discharge Packet Instructions: DI for Hip Replacement, DI for Prescription Opioid Use Stand Alone Forms: Patient Portal/API, Stroke Signs & Symptoms, Surgery Discharge Discharge Data Primary Care Provider: Nisa Cobb VTE Deep Vein Thrombosis/Pulmonary Embolism Present on Admission: No
[2024-05-23] MEDS: CEFAZOLIN 2 GM/100 ML PREMIX 100 ML IV (06:55)
[2024-05-23] MEDS: NAPROXEN 250 MG TABLET PO (09:01)
[2024-05-23] MEDS: ASPIRIN EC 81 MG TABLET PO (09:01)
[2024-05-23] MEDS: ACETAMINOPHEN 325 MG TABLET 650 MG PO (09:01)
--- NOTE | 2024-05-23 10:18 | PC.NURSE ---
Addendum entered by Meena Franco R.N. 05/23/24 15:51: Pt denies discomfort. ABIODUN dsg CDI Orders for D/C Transportation here Home instructions given Sl D/C intact. Pt escorted by staff via W/C to waiting vehicle. D/C in stable post op status Original Note: Pt A/O, Denies discomfort Dsg to left hip CDI SL intact Awaiting to see PT, then D/C home Call light w/in reach, Pt calls appropriately for needs.
--- NOTE | 2024-05-23 11:00 | PT.IIE ---
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, initial encounter (05/22/24) Mechanical loosening of other internal prosthetic joint, initial encounter (05/22/24) Presence of unspecified artificial hip joint (05/22/24) Surgery Performed Operation Date: 05/22/24 13:45 Actual Procedures p Revision of left total hip arthroplasty femoral stem(Left) - Parag Shannon MD Surgical History (Last Updated 05/21/24 @ 11:03 by Shantell Jernigan, RN) History of total left hip arthroplasty (04/03/24) Medical History (Last Updated 05/17/24 @ 14:37 by Shantell Jernigan, RN) Anemia Hyponatremia Physical Therapy Inpatient Evaluation/Re-Eval M1 PT/OT-IP Prior Functional Status Start: 05/23/24 13:58 Freq: NEEDED Status: Active Protocol: Document 05/23/24 11:00 AB (Rec: 05/23/24 14:08 AB [id number]) Medical Review Prior Functional Status Medical History Reviewed Yes Communication able to make needs known Mobility and Gait pt stated that he was modified independent with all mobilities and ambulation using his hiking poles Social History Household Members spouse Living Arrangements House Number of Floors (Floors) One Floor Number of Stairs To Enter/Railing? no steps to enter Home Environment Standard Height Toilet,Walk in Shower Home Equipment Front Wheel Walker,Hand Held Shower,Grab Bars Near Toilet, Grab Bars In Shower Additional Social History Comment pt stated that her daughter will also stay with him for a few days to assist M2 PT-IP Current Condition Start: 05/23/24 13:58 Freq: NEEDED Status: Active Protocol: Document 05/23/24 11:00 AB (Rec: 05/23/24 14:08 AB [id number]) Physical Therapy Current Condition Current Condition Evaluation Date 05/23/24 Treatment Diagnosis s/p L STAR revision anterior; difficulty in walking Onset Date 05/22/24 M3 PT-IP Subjective Start: 05/23/24 13:58 Freq: NEEDED Status: Active Protocol: Document 05/23/24 11:00 AB (Rec: 05/23/24 14:08 [id number]) Subjective Physical Therapy Visit Type Type Initial Evaluation Visit Start Time 11:00 Visit Stop Time 12:05 Number of ASP WEB DEVELOPER Visits 0 Physical Therapy Visit Comments Patient Comments agreeable to do PT Therapy Pain Assessment Pain When Pain Assessed At Rest Pain Present Pain Present Pain Reported Location Left Hip Intensity 2 Scale Used Numeric (0 - 10) Pain Behaviors Guarding Pain Management Techniques Apply Cold,Distraction, Modification of Treatment,Re- positioning,Timing of Activity with Medications M4 PT-IP Mobility and Gait Start: 05/23/24 13:58 Freq: NEEDED Status: Active Protocol: Document 05/23/24 11:00 AB (Rec: 05/23/24 14:08 AB [id number]) PT-Bed Mobility Assessment Supine to Sit Supine to Sit Standby Assistance PT-Transfer Assessment Sit to and From Stand Sit to and from Stand Standby Assistance,Contact Guard Assistance,1 Person Assistance,Use of Upper Extremities Equipment Transfer Assistive Device Gait Belt,Front Wheeled Walker Orthotic/Prosthetic Devices or Brace: No Transfers Transfer Destination Chair Transfer Technique ambulated Transfer Ability Level of Assist Standby Assistance,Contact Guard Assistance,1 Person Assistance,Use of Upper Extremities Comments Mobility Comments pt supine in bed and agreeable to do PT. obtained PLOF and home set up. post-op folder provided and reviewed contents . educated pt on anterior hip precautions for LLE. Bp in supine: 117/65. pt completed supine to sit SBA with max cues for techniques. required 2 attempts to complete. pt needed increase time to complete. pt completed sit to stand CGA and ambulated to the chair ~ 15 ft using FWW CGA to SBA. pt rested. agreed to ambulate more. completed sit to stand from the chair SBA and cues. pt with heavy UE use to stand. ambulated in the hallway using FWW ~ 50 ft SBA. pt sat back on the chair. c/o feeling lightheaded. BP checked: 84/ 43. Rechecked: 80/39. positioned pt on the chair with LE elevated. BP rechekced: 98/56. call light and table placed next to pt. informed nurse regarding pt's BP. Gait Assessment Gait Gait Assistance Required: Standby Assistance,Contact Guard Assist Distance (Feet) 60 Able to Maintain Weight Bearing Status Yes During Gait Assistive Devices Assistive Device Gait Belt,Front Wheeled Walker Orthotic/Prosthetic Devices or Brace: No Gait Deviations General Gait Pattern Antalgic,Decreased Feet Clearance Factors Limiting Gait Function Factors Limiting Gait Function Decreased Activity Tolerance, Decreased Strength,Limited Range of Motion,Pain,Poor Balance,Poor Safety Awareness PT-Balance Assessment Sitting Balance and Reactions Static Sitting Balance Ability Normal Dynamic Sitting Balance Ability Good Standing Balance and Reactions Static Standing Balance Ability Fair Dynamic Standing Balance Ability Fair Device Used FWW M5 PT-IP Objective Assessments Start: 05/23/24 13:58 Freq: NEEDED Status: Active Protocol: Document 05/23/24 11:00 AB (Rec: 05/23/24 14:08 [id number]) Orientation Orientation/Cognition Level of Alertness Alert Orientation Name,Place,Situation Language Function Ability No Deficits Noted Safety Awareness Understands Safety Issues Memory Description Short Term Impaired Gross Range of Motion Lower Extremity ROM Assessment Within Functional Limits Strength Lower Extremity Strength Assessment Left Impaired Hip 3-/5 Knee 4-/5 Coordination Assessment Gross Coordination Gross Coordination WNL Sensation Assessment Sensation Gross Sensation WNL Muscle Tone Muscle Tone WNL Yes M6 PT-IP Treatment Start: 05/23/24 13:58 Freq: NEEDED Status: Active Protocol: Document 05/23/24 11:00 AB (Rec: 05/23/24 14:08 [id number]) Physical Therapy Treatment Exercises Exercises Heel Slides Education Education Provided Precautions,Weight Bearing Status,Post-Op Packet,Safety M7 PT-IP Assessment and Plan Start: 05/23/24 13:58 Freq: NEEDED Status: Active Protocol: Document 05/23/24 11:00 AB (Rec: 05/23/24 14:08 [id number]) PT Summary Assessment and Plan Potential Rehabilitation Potential Fair Status of Condition at Evaluation Evolving Summary Impairments Pain,ROM,Strength,Balance, Coordination,Sensation,Tone, Cognition,Bed Mobility, Transfers,Gait,Activity Tolerance Assessment Summary pt is a 73 y/o M s/p L STAR revision anterior approach POD 1. pt has L hip anterior precautions and is WBAT. pt requiring SBA to CGA with mobilty using fWW. pt plans to go home and spouse to assist him. pt with decrease BP to 80/39 after ambulation. nurse aware. Goals Bed Mobility Goal Independent Transfer Goal Independent,Front Wheeled Walker Gait Goal Independent,Front Wheel Walker Gait Distance 200 Days to Meet Goals 5 Frequency of Treatment Other frequency 1-2x/day Treatment Plan Physical Therapy Treatment Plan Bed Mobility Training,Transfer Training,Gait Training, Therapeutic Exercise,Balance Retraining,Post Op Education, Discharge Planning,Hot or Cold Pack,Neuromuscular Re-ed, Coordination Retraining,Manual Therapy Precautions Anterior Hip Precautions No Hip Extension,No Hip External Rotation Weight Bearing Status Weight Bearing Status Weight Bear as Tolerated Allowed Weight Bearing Amount (enter % LLE WBAT or #) (%) Recommendations To Nursing Amount of Assist Needed 1 Person Assist Discharge Recommendations PT Discharge Recommendations Home with Assistance, Outpatient PT Transportation Needs at Discharge Private Vehicle
--- NOTE | 2024-05-23 11:46 | CM.DANOTE ---
Addendum entered by LINWOOD Park 05/23/24 15:39: per PT eval rec home with assist. Per PT eval note, daughter to stay with him and assist at dc. Original Note: B DCP Assessment NOte pt is a 73yo M here following planned left hip surgery with Dr. Shannon, pt is POD1. PCP Nisa Cobb Payer Medicare and [employer] reviewed EMR. per chart, pt lives with partner in [place]. Has a walker/cane for post op use but very mobile prior to surgery. Per chart, pt eager to dc home with partner support, PT/OT evals pending. Per RN report, pt doing well likely no CM needs. Per ortho PA note, pt doing well and can dc home after PT/OT. P: home with partner and OP f/u anticipated, no barriers to safe dc home identified at this time. CM team will continue to follow as needed LINWOOD Park Discharge Planning/Care Management CM Discharge Assessment Start: 05/23/24 11:45 Freq: Status: Active Protocol: Document 05/23/24 11:45 SL (Rec: 05/23/24 11:46 SL [id number]) Discharge Planning Assessment Assigned Buying Intern LINWOOD Cotton DPOA/Assigned Designee Name payal Casas Contact Information [phone] Advance Directives? No History Provided By Patient Prior Living Arrangements House Household Members spouse Type of transporation used prior to Drives own vehicle admit Independent with ADL's Yes Is patient alert and oriented? Yes Barriers to Discharge No Discharge Plan Home Additional Comment PT/OT pending, likely none needed Whiteboard Updated in Patient Room with No name and ext. # of Buying Intern Review Status In Process Please Provide Date Initial DC 05/23/24 Assessment Was Performed Next Review Type Continued Stay Review Pre-Anesthesia Assessment Start: 05/17/24 14:32 Freq: Status: Complete Protocol: Document 05/17/24 14:32 LB (Rec: 05/17/24 14:46 LB [id number]) Pre-Anesthesia Assessment PAC Comment 05/17/24 Chart review. 05/21/24 Phone assessment. Preferred Name Rich Patient Information Reviewed Via Chart Review,Phone Assessment Assessment Completed With Patient Diagnostic Results BMP/CMP,CBC,EKG Comment 05/17/24 at . (Hgb 11.0, HCT 32.2, Na 131) Primary Care Provider Nisa Cobb Medical Clearance Received Yes Seen Specialist in Last 12 Months Yes Specialist Seen Orthopedist Primary Language Afghan Preferred Language Afghan Sagger Soak Required No Height 177.8 cm Weight 73.936 kg Body Mass Index (BMI) 23.3 Hearing Ability Normal Visual Impairment No Limitations Visual Assist None Dentition Type Teeth, Natural Present Barriers to Learning None Other Aids No Hx Anesthesia Reactions No Hx Family Anesthesia Reaction No Hx Malignant Hyperthermia No Hx Blood Transfusions No Anesthesia Review Requested No Caretaker No alcohol intake frequency 0-2 drinks per day Smoking Status Former smoker how long ago did patient quit smoking Quit 1990. Substance Use Type marijuana Pain Present Denied Pain Musculoskeletal Symptoms Abnormal Gait History of Falling (Recent or History of No ) Patient is completely paralyzed or No completely immobile Prosthesis or Orthotic Device Cane,Front Wheel Walker Mental Status Oriented to own ability Comment Will bring walker. Is patient on oxygen? No Does patient have PAREDES/SOB No Hx Sleep Apnea No Currently Taking a Beta Geoffrey No Can You Climb a Flight of Stairs Without Yes SOB Hx Chest Pain No Hx SOB No Hx Syncope or Dizziness No Anti-Coagulant Therapy Yes: Aspirin 81mg BID. Cardiac Testing No Hx Pacemaker/ICD No Dysphagia No Chronic UTI No Bladder Pattern Frequency Urinary Catheter Present No Hx Urinary Self Catheterization No Diabetes No HgbA1C 4.7 Date 05/17/24 Hx Drug Resistant Organism No Presence of External or Internal Medical No Devices Have you had any close contact with No someone diagnosed with COVID-19? Are you experiencing any of these No symptoms symptoms? Marital Status Lives With spouse Current Living Arrangements House Number of Floors (Floors) Two Floors Number of Stairs To Enter/Railing? 0 stairs to enter, does not need to go upstairs. Support System Spouse Does the Patient Have Assistance After Yes Surgery Patient Discharge Plan Description Return Home Emergency Contact Name Yessenia Cardenas - Emergency Contact Advance Directives? No PAC Instructions Assistance for 24 hours post- op,Durable medical equipment, Medications to take/avoid, Nasal antibiotic,No ETOH/ petroleum product on skin DOS, NPO,Pre-op antibiotic,Pre- surgical wash,Sensory aids, Sturdy shoes/comfortable clothes,Do not bring valuables and remove jewelry
== END 2024-05-23 15:55 | disposition home or self-care (01) | DRG 468 ==
PROVIDERS: Admitting Provider Orthopaedic Surgery Adult Reconstructive Orthopaedic Surgery; Family Provider Student in an Organized Health Care Education/Training Program; PCP Student in an Organized Health Care Education/Training Program; Referring Provider Orthopaedic Surgery Adult Reconstructive Orthopaedic Surgery; Visit Provider Orthopaedic Surgery Adult Reconstructive Orthopaedic Surgery
PROC: 0SRS03A Replacement of Left Hip Joint, Femoral Surface with Ceramic Synthetic Substitute, Uncemented, Open Approach (ICD-10-PCS; CPT 27130; principal; 2024-05-22 13:45)
DX: T84.031A Mechanical loosening of internal left hip prosthetic joint, initial encounter (principal); M96.662 Fracture of femur following insertion of orthopedic implant, joint prosthesis, or bone plate, left leg; Z87.891 Personal history of nicotine dependence
CPT/HCPCS: 36415; 73502; 76000; 85014; 85018; 97162; 97530; C1776; J0690; J1100; J1171; J2405; J2704

== ENCOUNTER → 2024-11-14 11:07 | Outpatient (CLI) | payer MEDICARE, OTHER, SELFPAY ==
[2024-05-22 12:42] VITALS: BMI 23.3
[2024-11-14 11:57] LABS: Add Manual Diff / Slide Review NO; Basophils Absolute Auto 100 /uL (0-100); Basophils Percent Auto 2.1 % (0-2); Eosinophils Absolute Auto 300 /uL (0-450); Eosinophils Percent Auto 6.3 % (2-4); Hematocrit 36.7 % (41-53); Hemoglobin 12.7 g/dL (13.5-17.5); Lymphocytes Absolute Auto 1500 /uL (1100-4500); Lymphocytes Percent Auto 28.6 % (25-40); Mean Corpuscular HGB Conc 34.4 % (30-36); Mean Corpuscular Hemoglobin 34.2 PG (26-34); Mean Corpuscular Volume 99.2 fL (80-100); Monocytes Absolute Auto 700 /uL (0-900); Monocytes Percent Auto 13.9 % (3-14); Neutrophils Absolute Auto 2500 /uL (1500-7000); Neutrophils Percent Auto 49.1 % (50-75); Platelet Count 293 X10^3/uL (150-400); Red Cell Distribution Width 13.5 % (11.6-14.8); White Blood Cell Count 5.2 X10^3/uL (4.5-11.0)
== END ==
PROVIDERS: Family Provider Student in an Organized Health Care Education/Training Program; PCP Student in an Organized Health Care Education/Training Program; Referring Provider Orthopaedic Surgery Adult Reconstructive Orthopaedic Surgery; Visit Provider Orthopaedic Surgery Adult Reconstructive Orthopaedic Surgery
DX: Z96.642 Presence of left artificial hip joint (principal)
CPT/HCPCS: 36415; 85025

== ENCOUNTER 2025-05-10 19:52 | Emergency (ER) | payer MEDICARE, OTHER, SELFPAY ==
[2024-05-22 12:42] VITALS: BMI 23.3
[2025-05-10] VITALS (7 sets, daily range): BP systolic 130–153; BP diastolic 60–76; PULSE 68–75; RESP 14; TEMP 36.8; O2SAT 98–100; BMI 23.6
--- NOTE | 2025-05-10 20:00 | DI.RAD.S_ITS ---
PROCEDURE: XR KNEE LT 3V INDICATIONS: fall with left leg extended,unable to bear weight TECHNIQUE: 3 views of the knee were acquired. COMPARISON: [facility], CR, XR KNEE LT 3V, 01/24/2024, 10:43. [facility], CR, XR KNEE LT 3V, 02/11/2023, 14:44. FINDINGS: Bones: Acute intra-articular fracture of the medial tibial plateau extends to the tibial spine with mild marginal impaction. Soft tissues: Moderate joint effusion. Meniscal chondrocalcinosis. Vascular calcifications. IMPRESSION: Acute intra-articular fracture of the medial tibial plateau and spine which extends to the medial tibial metadiaphysis. Dictated by: Derek Berman M.D. on 05/10/2025 at 21:17 Approved by: Derek Berman M.D. on 05/10/2025 at 21:18
--- NOTE | 2025-05-10 21:22 | DI.CT.S_ITS ---
PROCEDURE: CT LE LT W CON INDICATIONS: Tibial plateau fracture TECHNIQUE: Noncontrast 1-1.5 mm axial sections acquired from the mid-patella to the proximal tibia, with coronal and sagittal reformats. COMPARISON: Same day knee radiographs. FINDINGS: Image quality: Excellent. Bones: Acute tibial plateau fracture with combination of the tibial spine, marginal impaction along the posterior tibial plateau with depression of the posterior weight-bearing cyst surface and vertical component extending from the medial tibial spine to the medial metadiaphysis of the tibial shaft. Soft tissues: Chondrocalcinosis of the bilateral menisci. Large volume lipohemarthrosis . Moderate atrophy of the musculature. Edema tracks along these superficial margin of the soleus and the superficial compartment of the proximal lower leg. IMPRESSION: Split medial and lateral tibial plateau fracture (bicondylar) with impaction the posterior weight bearing tibial plateau. Dictated by: Derek Berman M.D. on 05/10/2025 at 23:30 Approved by: Derek Berman M.D. on 05/10/2025 at 23:32
--- NOTE | 2025-05-10 21:39 | ED.LOWEXIN ---
HPI - Extremity Injury (Lower) General Chief Complaint: Extremity Injury, Lower Stated Complaint: L. Leg pain, hiking Time Seen by Provider: 05/10/25 21:22 Mode of arrival: Wheelchair History of Present Illness HPI Narrative: Patient is a healthy 74-year-old male presenting today with left knee pain. He reports that he was hiking slipped on a rock his knee locked and fell. He did not have his phone with he was found crawling the trail with luckily somebody came by. He denies any head injury no hip injury no other injury at this time. He is not asking your requiring anything for pain. Related Data Home Medications ?Medication ?Instructions ?Recorded ?Confirmed acetaminophen 500 mg tablet 500 mg PO TID 05/21/24 05/22/24 (Tylenol Extra Strength) aspirin 81 mg tablet,delayed 81 mg PO BID 05/21/24 05/21/24 release naproxen sodium 220 mg capsule 220 mg PO TID 05/21/24 05/21/24 (Aleve) Previous Rx's ?Medication ?Instructions ?Recorded diclofenac sodium 1 % topical gel 4 g topical QID #100 grams 02/11/23 cefadroxil 500 mg capsule 500 mg PO BID #20 caps 05/23/24 food supplemt, lactose-reduced 1 ea PO DAILY #237 mL 05/23/24 0.08 gram-1.5 kcal/mL oral liquid (Ensure Plus High Protein) hydrocodone 5 mg-acetaminophen 325 1 tab PO Q6H PRN pain #10 tabs 05/10/25 mg tablet Allergies Allergy/AdvReac Type Severity Reaction Status Date / Time No Known Drug Allergies Allergy Verified 05/10/25 19:56 Patient History Medical History Hyponatremia Anemia Surgical History History of total left hip arthroplasty (04/03/24) Social History household members: spouse Smoking Status: Unknown if ever smoked alcohol intake: current Smoking Status: Unknown if ever smoked alcohol intake frequency: 0-2 drinks per day Alcohol type: beer Exam Initial Vital Signs Initial Vital Signs: Vital Signs Temperature 98.3 F 05/10/25 19:56 Pulse Rate 75 05/10/25 19:56 Respiratory Rate 14 05/10/25 19:56 Blood Pressure 153/76 H 05/10/25 19:56 Pulse Oximetry 100 05/10/25 19:56 Oxygen Delivery Method Room Air 05/10/25 19:56 GENERAL: Alert very well-appearing 74-year-old male HEENT: Head atraumatic,EOMI, pupils reactive, face symmetric, [moist] mucous membranes CARDIOVASCULAR: Regular rate and rhythm without murmurs, rubs or gallops. RESPIRATORY: Breath sounds equal bilaterally, no wheezes rales or rhonchi. ABDOMEN: Soft, nontender. Normoactive bowel sounds all 4 quadrants. No guarding or rebound. EXTREMITIES: Normal range of motion, no clubbing or edema. Neurovascularly intact Right lower extremity he has significant knee if his effusion with mild contusion no erythema strong distal pedal pulse no fever pain or hip pain NEUROLOGICAL: Alert and oriented x4.Cranial nerves II through XII grossly intact. SKIN: Warm, dry, no laceration, no petechiae, no rashes or lesions. Course Orders Ordered: ED Orders 05/10/25 20:00 XR knee LT 3V Stat 05/10/25 21:22 CT LE LT wo con Stat Vital Signs Vital signs: Vital Signs - 8 hr 05/10/25 19:56 05/10/25 21:29 05/10/25 21:29 Temperature 98.3 F Pulse Rate 75 72 Respiratory Rate 14 Blood Pressure 153/76 H 144/67 H Pulse Oximetry 100 98 Oxygen Delivery Method Room Air 05/10/25 21:30 05/10/25 21:30 05/10/25 22:00 Temperature Pulse Rate 71 Respiratory Rate Blood Pressure 150/71 H 130/60 Pulse Oximetry 98 Oxygen Delivery Method 05/10/25 22:00 05/10/25 22:30 05/10/25 23:00 Temperature Pulse Rate 71 74 68 Respiratory Rate Blood Pressure Pulse Oximetry 98 99 99 Oxygen Delivery Method MDM - Extremity Injury (Lower) Imaging Data Extremity x-ray #1: Radiologist's Impression: PROCEDURE: XR KNEE LT 3V INDICATIONS: fall with left leg extended,unable to bear weight TECHNIQUE: 3 views of the knee were acquired. COMPARISON: [facility], CR, XR KNEE LT 3V, 01/24/2024, 10:43. [facility], CR, XR KNEE LT 3V, 02/11/2023, 14:44. FINDINGS: Bones: Acute intra-articular fracture of the medial tibial plateau extends to the tibial spine with mild marginal impaction. Soft tissues: Moderate joint effusion. Meniscal chondrocalcinosis. Vascular calcifications. IMPRESSION: Acute intra-articular fracture of the medial tibial plateau and spine which extends to the medial tibial metadiaphysis. Dictated by: Derek Berman M.D. on 05/10/2025 at 21:17 Approved by: Derek Berman M.D. on 05/10/2025 at 21:18 CT LE: Radiologist's Impression: PROCEDURE: CT LE LT W CON INDICATIONS: Tibial plateau fracture TECHNIQUE: Noncontrast 1-1.5 mm axial sections acquired from the mid-patella to the proximal tibia, with coronal and sagittal reformats. COMPARISON: Same day knee radiographs. FINDINGS: Image quality: Excellent. Bones: Acute tibial plateau fracture with combination of the tibial spine, marginal impaction along the posterior tibial plateau with depression of the posterior weight-bearing cyst surface and vertical component extending from the medial tibial spine to the medial metadiaphysis of the tibial shaft. Soft tissues: Chondrocalcinosis of the bilateral menisci. Large volume lipohemarthrosis . Moderate atrophy of the musculature. Edema tracks along these superficial margin of the soleus and the superficial compartment of the proximal lower leg. IMPRESSION: Split medial and lateral tibial plateau fracture (bicondylar) with impaction the posterior weight bearing tibial plateau. MDM Narrative Medical decision making narrative: Patient healthy 74-year-old male presenting today with left knee pain. He fell while hiking and crawled around ultimately got help. He is found to have a tibial plateau fracture without significant depression. [id number] Dr. Mike orthopedic reviewed CT states can follow up outpatient. Knee immobilizer weight crutches nonweightbearing Patient is started having some pain given Mona and prepack along with instructions from Orthopedics. Both patient and agree. He is given Mona here for pain Discharge Plan Departure Patient Disposition: Home Clinical Impression: Fracture of tibial plateau, closed Instructions: DI for Tibial Plateau Fracture Activity Restrictions/Additional Instructions: *You have been diagnosed with tibial plateau fracture *What to do: At this time keep knee immobilizer on do not put weight on it use crutches. Elevate and ice. Orthopedic surgery we will call you to schedule an appointment for next week to discuss options. *Continue to take medications as directed Mona 1 tablet every 4-6 hours if needed for pain *Follow up with your primary care provider in 2-3 days or call [phone] Dr. Mike orthopedic, call on Tuesday if you do not hear anything from the *Return to ER if you should have increasing pain numbness tingling weakness or any new, worsening or concerning symptoms CONTROLLED SUBSTANCE DISCHARGE (Narcotoic/benzodiazepine/Flexeril/Phenergan) 1. You have been prescribed narcotic medications, it does have acetaminophen/Tylenol/paracetamol in it, DO NOT TAKE MORE THAN 4,00mg in 24 hours of Tylenol. TRAMADOL DOES NOT CONTAIN TYLENOL 2. Please understand that we cannot provide further refills of narcotics, benzodiazepines or controlled substances through the ED and her pain management will need to be through your provider. 3. While on these medications you cannot drive or operate heavy machinery. 4. You cannot sign legal documents or perform any duties such as this. 5. As long as you're taking opiate pain medications he should also be taking a stool softener such as Colace, Dulcolax, MiraLAX or prune juice, to help avoid constipation. Prescriptions: New hydrocodone-acetaminophen 5-325 mg tablet 1 tab PO Q6H PRN (Reason: pain) Qty: 10 0RF No Action diclofenac sodium 1 % gel 4 g topical QID Qty: 100 2RF Rx Instructions: Apply to knee up to 4 times a day as needed aspirin 81 mg tablet,delayed release (DR/EC) 81 mg PO BID acetaminophen [Tylenol Extra Strength] 500 mg Tablet 500 mg PO TID naproxen sodium [Aleve] 220 mg Capsule 220 mg PO TID cefadroxil 500 mg capsule 500 mg PO BID Qty: 20 0RF Ensure Plus High Protein 0.08 gram-1.5 kcal/mL liquid 1 ea PO DAILY Qty: 237 3RF Referrals: Nisa Cobb PA-C [Primary Care Provider, Medical] Gregg Mike MD [Physician, Orthopedic Surgery] Stand Alone Forms: Patient Portal/API
[2025-05-11] VITALS: PULSE 75; O2SAT 100
[2025-05-11 00:19] VITALS: BP 159/73; PULSE 73; O2SAT 99
== END 2025-05-11 00:43 | disposition home or self-care (01) ==
PROVIDERS: Emergency Provider Emergency Medicine; Family Provider Student in an Organized Health Care Education/Training Program; PCP Student in an Organized Health Care Education/Training Program
DX: S82.142A Displaced bicondylar fracture of left tibia, initial encounter for closed fracture (principal); W01.198A Fall on same level from slipping, tripping and stumbling with subsequent striking against other object, initial encounter
CPT/HCPCS: 73562; 73700; 99283; 99284

== ENCOUNTER → 2025-06-17 12:16 | Outpatient (CLI) | payer MEDICARE, OTHER, SELFPAY ==
[2024-05-22 12:42] VITALS: BMI 23.3
--- NOTE | 2025-06-17 12:17 | DI.RAD.S_ITS ---
PROCEDURE: XR DEXA AXIAL SKELETON INDICATIONS: post op L STAR COMPARISON: None. FINDINGS: Lumbar Spine: Bone mineral density 1.009 g/cm2, T score -0.3. Left Femoral Neck: Bone mineral density 0.646 g/cm2, T score -1.8. Left Hip: Bone mineral density 0.765 g/cm2, T score -1.5. Fracture Risk Calculation (when applicable): 10-year fracture risk of a major osteoporotic fracture 8.4 percent and of a hip fracture 3.0 percent. (T score greater or equal to -1.0 to: NORMAL) (T score from -1.1 to -2.4: OSTEOPENIA) (T score less than or equal to -2.5: OSTEOPOROSIS) IMPRESSION: Low bone mineral density (osteopenia) by WHO classification. Follow-up guidelines as follows: Osteoporosis: Consider a repeat DEXA and Vertebral Fracture Assessment (VFA) exam in 2 years or sooner if medically necessary, to reassess this patient's status. Osteopenia: Consider a repeat DEXA in 2-3 years to reassess this patient's status, or if there is a new clinical indication. Normal: Consider a repeat DEXA in 5 years or sooner, or if there is a new clinical indication. All treatment decisions require clinical judgment and consideration of individual patient factors, including patient preferences, comorbidities, previous drug use, risk factors not captured in the FRAX model (e.g., frailty, falls, vitamin D deficiency, increased bone turnover, interval significant decline in bone density ) and possible under- or over-estimation of fracture risk by FRAX. In addition, the NOF Guide recommends that FDA-approved medical therapies be considered in postmenopausal women and men age >= 50 years with a: * Hip or vertebral (clinical or morphometric) fracture * T-score of <=-2.5 at the spine or hip * Ten-year fracture probability by FRAX of >= 3% for hip fracture or >=20% for major osteoporotic fracture. Dictated by: Clarence De La Garza M.D. on 06/17/2025 at 16:40 Approved by: Clarence De La Garza M.D. on 06/17/2025 at 16:41
== END ==
PROVIDERS: Family Provider Student in an Organized Health Care Education/Training Program; PCP Student in an Organized Health Care Education/Training Program; Referring Provider Orthopaedic Surgery Adult Reconstructive Orthopaedic Surgery; Visit Provider Orthopaedic Surgery Adult Reconstructive Orthopaedic Surgery
DX: M81.0 Age-related osteoporosis without current pathological fracture (principal); M85.89 Other specified disorders of bone density and structure, multiple sites; T84.038A Mechanical loosening of other internal prosthetic joint, initial encounter; Z96.649 Presence of unspecified artificial hip joint
CPT/HCPCS: 77080